=== PATIENT | female | born 1990 | race Caucasian/White ===

== ENCOUNTER 2019-06-26 22:48 | Inpatient (IN) | payer MEDICAID ==
[~2019-06-26] VITALS: Ht 167.6 cm; Wt 99.2 kg
[~2019-06-26 22:48] MED LIST: NO HOME MEDS; TRIF7.5D6 LEFTEYE; calcium chloride 100 MG/1 ML inj IV ONE; dextrose 50%-water 50ml dispensing syringe IV ONE; epiNEPHrine 0.1mg/ml 10ml syringe ONE; etomidate 2mg/ml inj. ONE; rocuronium 10mg/ml inj IV ONE
[2019-06-26] MEDS ORDERED: rocuronium 10mg/ml inj IV ONE (23:05)
[2019-06-26] MEDS ORDERED: MIDAZolam 5mg/ml 2ml vial IV ONE (23:05)
[2019-06-26] MEDS ORDERED: etomidate 2mg/ml inj. IV ONE (23:05)
[2019-06-26] MEDS: NORepinephrine 8mg/ 250ml NS 250 ML IV SCH (23:10)
[2019-06-26] MEDS: midazolam 100mg in NS 100ml 100 ML IV SCH (23:10)
[2019-06-26] MEDS ORDERED: iohexol 300mg/ml 100ml inj. ONE (23:10)
[2019-06-26 23:23] LABS: BASOPHILS # (AUTO) 0.3 X10'3 (0-0.2); BASOPHILS % (AUTO) 0.9 % (0-1); EOSINOPHILS % (AUTO) 0.1 % (0-6); HEMATOCRIT 29.9 % (35.0-45.0); HEMOGLOBIN 10.4 g/dl (12.0-16.0); LYMPHOCYTES # (AUTO) 4.2 X10'3 (1.1-4.8); MEAN CORPUSCULAR HEMOGLOBIN 38.9 PG (27.0-31.0); MEAN CORPUSCULAR HGB CONC 34.7 g/dL (33.0-36.5); MEAN CORPUSCULAR VOLUME 112.2 FL (78-98); MEAN PLATELET VOLUME 7.6 FL (7.4-10.4); MONOCYTES # (AUTO) 1.1 X10'3 (0-0.9); MONOCYTES % (AUTO) 3.9 % (2-12); NEUTROPHILS # (AUTO) 24.1 X10'3 (1.8-7.7); NEUTROPHILS % (AUTO) 81.1 % (42-75); PLATELET COUNT 157 X10'3 (140-440); RED BLOOD COUNT 2.67 X10'6 (4.20-5.60); RED CELL DISTRIBUTION WIDTH 17.4 % (11.5-14.5)
[2019-06-26 23:25] LABS: PARTIAL THROMBOPLASTIN TIME 59 SECONDS (22-32)
[2019-06-26 23:27] LABS: WHITE BLOOD COUNT 29.7 X10'3 (4.5-11.0)
[2019-06-26 23:35] LABS: ABG BASE EXCESS -14.4 mmol/L (-2.0-3.0); ABG HCO3 14.2 mmol/L (22.0-26.0); ABG OXYGEN SATURATION 92.4 % (95-98); ABG PCO2 (T) 42.9 mmHg (35.0-45.0); ABG PH (T) 7.136 (7.350-7.450); ABG PO2 (T) 87.4 mmHg (83-108); FCOHb 0.3 % (0.5-1.5); FMetHb 0.3 % (0.3-1.12); FO2Hb 91.8 % (94-100); MINUTE VOLUME 8 L/min; PATIENT TEMPERATURE 36.4; PEEP 5 cm H2O; RESPIRATORY RATE 18 b/min; RESPIRATORY RATE (OBSERVED) 18 b/min; TIDAL VOLUME 400 mL; TOTAL HEMOGLOBIN 11.8 G/dl (12.0-16.0)
[2019-06-26 23:45] LABS: ALANINE AMINOTRANSFERASE 78 U/L (12-78); ALKALINE PHOSPHATASE 350 IU/L (46-116); BILIRUBIN,TOTAL 19.4 MG/DL (0.1-1.0); BLOOD UREA NITROGEN 131 MG/DL (7-18); CALCIUM 7.1 MG/DL (8.5-10.1); ETHANOL < 0.010 GM/DL (0.0-0.010); MAGNESIUM 2.5 MG/DL (1.5-2.4); TOTAL CARBON DIOXIDE 20.4 MMOL/L (24-32)
[2019-06-26] MEDS ORDERED: piperacillin/tazo 3.375gm/50ml 50 ML IV ONE (23:55)
[2019-06-26] MEDS ORDERED: vancomycin/NS 1 GM ADD-VANTAGE 250 ML IV ONE (23:55)
[2019-06-26] MEDS ORDERED: normal saline 1000ML IV soln IV ONE (23:55)
[2019-06-26 23:58] LABS: ALBUMIN/GLOBULIN RATIO 0.2 (1.1-1.5); BUN/CREATININE RATIO 10.2 (6.6-38.0); CKMB RELATIVE INDEX 0.9 RATIO (0-2.5); CREATINE KINASE 121 U/L (26-192); CREATININE 12.87 MG/DL (0.40-0.90); GLUCOSE 57 MG/DL (70-104); PHOSPHORUS 7.8 MG/DL (2.3-4.5); POTASSIUM 4.8 MMOL/L (3.5-5.1); SODIUM 130 MMOL/L (135-145); TOTAL PROTEIN 5.5 G/DL (6.4-8.2); eGFR 3 ML/MIN
[2019-06-26 23:59] LABS: ACETAMINOPHEN < 2.0 UG/ML (10-30); ANION GAP 28 (8-16); CHLORIDE 82 MMOL/L (99-107)
[2019-06-27] VITALS (23 sets, daily range): BP systolic 87–123; BP diastolic 35–64
[2019-06-27 00:12] LABS: OSMOLALITY 315 MOSM/K (280-300)
[2019-06-27 00:13] LABS: ASPARTATE AMINO TRANSFERASE 325 U/L (10-37)
[2019-06-27] MEDS ORDERED: tranexamic acid inj. 0 MG in normal saline 100ml IV soln 100 ML IV ONE (00:40)
--- NOTE | 2019-06-27 00:55 | NUR ---
at bedside reports no real medical history. He did confirm she is a drinker and has been rectally bleeding x3days.
[2019-06-27] MEDS ORDERED: NORepinephrine 8mg/ 250ml NS 250 ML IV PRN (01:03)
[2019-06-27] MEDS ORDERED: midazolam 100mg in NS 100ml 100 ML IV PRN (01:03)
[2019-06-27] MEDS: K, MAG and/or Phos replacement - Verify level? MC SCH ×2 (01:05→08:00)
[2019-06-27] MEDS ORDERED: morphine 2 MG/ML inj. syringe IV PRN (01:05)
[2019-06-27] MEDS ORDERED: potassium Cl 20mEq/100mL bag 100 ML IV PRN ×3 (01:05→13:35)
[2019-06-27] MEDS ORDERED: tranexamic acid 100mg/ml inj. IV ONE (01:05)
[2019-06-27] MEDS ORDERED: ondansetron/PF 4mg/2ml inj IV PRN (01:05)
[2019-06-27] MEDS ORDERED: acetaminophen 325mg tablet PO PRN ×2 (01:05)
[2019-06-27] MEDS ORDERED: morphine 4 MG/ML inj SYRINge IV PRN (01:05)
[2019-06-27] MEDS ORDERED: potassium Cl 20 mEq SR tablet PO PRN ×2 (01:05)
--- NOTE | 2019-06-27 01:07 | NUR ---
Patient arrived via EMS code #3 and was intubated upon arrival. @2300 Etomidate 40mg, Mohsen 100mg and .05mg Epi were given @2310 Levo was started 20mcg. 2330 the first of 3L NS was started and mass transfusion ordered a second does of Epi 0.5mg was given. Patient arrived bleeding rectally and orally, with tried blood on her body and clothes. Patient was A&O x0. was later brought to the bedside and advised the patient is a drinker, but has no real medical history.
[2019-06-27 01:17] LABS: URINE HCG NEGATIVE (NEG)
[2019-06-27 01:22] LABS: CLARITY,URINE SLIGHTLY CLOUDY (Clear); COLOR,URINE RED (Yellow); GLUCOSE, URINE NEGATIVE (Neg); KETONES,URINE NEGATIVE (Neg); LEUKOCYTE ESTERASE ,URINE NEGATIVE (Neg); NITRITES, URINE NEGATIVE (Neg); OCCULT BLOOD,URINE LARGE (Neg); PH,URINE 5.5 (4.8-8.0); PROTEIN,URINE NEGATIVE (Neg); UROBILINOGEN,URINE 0.2 E.U/dL (0.2-1.0)
[2019-06-27 01:29] LABS: LIPASE 827 U/L (73-393)
[2019-06-27 01:30] LABS: URINE AMPHETAMINE SCREEN NEGATIVE (Neg); URINE BARBITUATE SCREEN NEGATIVE (Neg); URINE BENZODIAZEPINES SCREEN NEGATIVE (Neg); URINE CANNABINOID SCREEN NEGATIVE (Neg); URINE COCAINE SCREEN NEGATIVE (Neg); URINE METHADONE SCREEN NEGATIVE (Neg); URINE OPIATE SCREEN NEGATIVE (Neg); URINE PHENCYCLIDINE SCREEN NEGATIVE (Neg)
--- NOTE | 2019-06-27 01:38 | NUR ---
CHARLIE Bella at the [facility].
--- NOTE | 2019-06-27 01:43 | NUR ---
BLOOD TRANSFUSION ADMIN RECORD DOUBLE SIGNED BY DEYANIRA XIAO AND CORRIE XIAO, FAXED TO BLOOD BANK AND ORIGINALS PLACED ON CHART.
[2019-06-27] MEDS ORDERED: calcium chloride 100 MG/1 ML inj IV ONE (01:55)
[2019-06-27] MEDS: octreotide inj. 1,250 MCG in normal saline 250ml IV soln 243.75 ML IV SCH (02:15)
[2019-06-27] MEDS ORDERED: vasopressin inj. 20 UNIT in normal saline 100ml IV soln 39 ML IV SCH (02:20)
--- NOTE | 2019-06-27 02:26 | NUR ---
Report given to DAMEON NGUYỄN.
[2019-06-27 02:49] LABS: BASOPHILS # (AUTO) 0.1 X10'3 (0-0.2); BASOPHILS % (AUTO) 0.3 % (0-1); EOSINOPHILS % (AUTO) 0.1 % (0-6); HEMATOCRIT 32.2 % (35.0-45.0); HEMOGLOBIN 11.1 g/dl (12.0-16.0); LYMPHOCYTES # (AUTO) 1.3 X10'3 (1.1-4.8); LYMPHOCYTES % (AUTO) 3.7 % (21-51); MEAN CORPUSCULAR HGB CONC 34.7 g/dL (33.0-36.5); MEAN CORPUSCULAR VOLUME 103.7 FL (78-98); MEAN PLATELET VOLUME 7.6 FL (7.4-10.4); MONOCYTES # (AUTO) 1.7 X10'3 (0-0.9); MONOCYTES % (AUTO) 4.5 % (2-12); NEUTROPHILS # (AUTO) 33.4 X10'3 (1.8-7.7); NEUTROPHILS % (AUTO) 91.4 % (42-75); PLATELET COUNT 202 X10'3 (140-440); RED CELL DISTRIBUTION WIDTH 21.3 % (11.5-14.5)
[2019-06-27 02:53] LABS: WHITE BLOOD COUNT 36.6 X10'3 (4.5-11.0)
--- NOTE | 2019-06-27 02:57 | NUR ---
Patient to the floor
[2019-06-27 03:00] LABS: UA COLLECTION TYPE STRAIGHT CATH
[2019-06-27 03:01] LABS: BACTERIA,URINE FEW /HPF (Neg); RBC,URINE 20-50 /HPF (0-2); SQUAMOUS EPITHELIAL CELL,UR FEW /LPF (FEW); WBC,URINE 0-4 /HPF (0-4)
[2019-06-27] MEDS ORDERED: NO HOME MEDS (04:01)
[2019-06-27 05:16] LABS: OXYGEN SATURATION (MIXED VEN) 81.7 % (60-80)
--- NOTE | 2019-06-27 05:40 | NUR ---
0300 received pt via gurney from ER pt is on a ventilator, does not respond to verbal stimuli, placed on monitor, Large amount of renate blood coming from the mouth and nose, pt cleaned. Pts live in male partner at bedside states she does not have family near by and does not have a way to contact them,
[2019-06-27] MEDS: pantoprazole 40MG/NS 100ML BAG 100 ML IV SCH ×5 (05:56→20:24)
[2019-06-27 06:21] LABS: ANISOCYTOSIS 3+; PLATELET ESTIMATE NORMAL; TOTAL CELLS COUNTED 100
[2019-06-27 06:50] LABS: TOTAL CELLS COUNTED 100
[2019-06-27 06:51] LABS: ANISOCYTOSIS 1+; PLATELET ESTIMATE NORMAL
[2019-06-27 06:59] LABS: TOXIC GRANULATION 1+; TOXIC VACUOLATION FEW
[2019-06-27 08:16] LABS: HEMOGLOBIN 11.2 g/dl (12.0-16.0); MEAN CORPUSCULAR HGB CONC 34.7 g/dL (33.0-36.5)
[2019-06-27 08:19] LABS: BASOPHILS # (AUTO) 0.3 X10'3 (0-0.2); BASOPHILS % (AUTO) 0.8 % (0-1); EOSINOPHILS % (AUTO) 0 % (0-6); HEMATOCRIT 32.2 % (35.0-45.0); LYMPHOCYTES # (AUTO) 1.7 X10'3 (1.1-4.8); LYMPHOCYTES % (AUTO) 3.9 % (21-51); MEAN CORPUSCULAR HEMOGLOBIN 35.8 PG (27.0-31.0); MEAN CORPUSCULAR VOLUME 103.2 FL (78-98); MONOCYTES # (AUTO) 1.8 X10'3 (0-0.9); MONOCYTES % (AUTO) 4.2 % (2-12); NEUTROPHILS # (AUTO) 38.6 X10'3 (1.8-7.7); NEUTROPHILS % (AUTO) 91.1 % (42-75); PLATELET COUNT 245 X10'3 (140-440); RED BLOOD COUNT 3.12 X10'6 (4.20-5.60); RED CELL DISTRIBUTION WIDTH 21.2 % (11.5-14.5)
[2019-06-27 08:24] LABS: WHITE BLOOD COUNT 42.4 X10'3 (4.5-11.0)
[2019-06-27] MEDS: NORepinephrine 8mg/ 250ml NS 250 ML IV SCH ×5 (08:26→20:25)
[2019-06-27 08:33] LABS: ALANINE AMINOTRANSFERASE 82 U/L (12-78); ALBUMIN 1.3 G/DL (3.4-5.0); ALKALINE PHOSPHATASE 370 IU/L (46-116); ANION GAP 24 (8-16); BILIRUBIN,TOTAL 21.9 MG/DL (0.1-1.0); BLOOD UREA NITROGEN 120 MG/DL (7-18); CALCIUM 7.7 MG/DL (8.5-10.1); CHLORIDE 84 MMOL/L (99-107); MAGNESIUM 2.3 MG/DL (1.5-2.4); SODIUM 126 MMOL/L (135-145); TOTAL CARBON DIOXIDE 18.3 MMOL/L (24-32)
[2019-06-27 08:39] LABS: ALBUMIN/GLOBULIN RATIO 0.3 (1.1-1.5); ASPARTATE AMINO TRANSFERASE 319 U/L (10-37); BILIRUBIN,DIRECT 18.7 MG/DL (0-0.3); CREATININE 11.98 MG/DL (0.40-0.90); GLUCOSE 91 MG/DL (70-104); POTASSIUM 4.7 MMOL/L (3.5-5.1); TOTAL PROTEIN 6.1 G/DL (6.4-8.2); eGFR 4 ML/MIN
[2019-06-27] MEDS: piperacillin/tazo 3.375gm/50ml 50 ML IV SCH ×2 (08:44→20:24)
[2019-06-27] MEDS: midazolam 100mg in NS 100ml 100 ML IV SCH ×2 (08:47→18:46)
[2019-06-27] MEDS ORDERED: vancomycin/NS 1 GM ADD-VANTAGE 250 ML IV PRN (09:00)
[2019-06-27 10:20] LABS: ANISOCYTOSIS 3+; NUCLEATED RED BLOOD CELLS 2 /100WBC (0-0); PLATELET ESTIMATE NORMAL; TOTAL CELLS COUNTED 100
[2019-06-27 10:29] LABS: PHOSPHORUS 7.8 MG/DL (2.3-4.5)
[2019-06-27] MEDS: VASOPRESSIN IV SCH ×2 (11:08→17:31)
[2019-06-27] MEDS: NORMAL SALINE IV SCH ×3 (11:08→17:31)
[2019-06-27] MEDS: MVI, adult No.4 with vit. K 10 ML in dextrose 5% water 500ml 500 ML IV SCH ×2 (12:16)
[2019-06-27] MEDS: FOLIC ACID IV SCH (12:16)
[2019-06-27] MEDS: THIAMINE IV SCH (12:16)
--- NOTE | 2019-06-27 13:33 | NUR ---
Initial: Pt intubated admit w/ GIB hx etoh abuse found down in bloody stool at home per RN. Hepatorenal failure per entertainment usher at rounds in addition to bilateral PNA and jaundice per MD note. MD agrees to banana bag given etoh hx. Prognosis poor per MD and possible transfer to higher level of care if able. Pt continues to bleed w/ 300ml upper GI blood suctioned between 7am-10am per RN. LBM 06/27. Will continue to monitor. Rec: 1. monitor for nutrition support needs; IF TF Vital HP at 100ml/hr goal 2. banana bag for etoh per MD 3. weekly wts Addendum: 06/27/19 at [address] Amended: Links added.
[2019-06-27] MEDS ORDERED: calcium chloride inj. 1,000 MG in normal saline 100ml IV soln 100 ML IV PRN (13:35)
[2019-06-27] MEDS: FENTANYL-0.9 % NACL/PF 100 ML IV PRN ×2 (14:40→18:45)
[2019-06-27] MEDS: Duosol 4K/3 Ca (w/calcium) 5,000 ML HE SCH ×5 (15:22→22:10)
[2019-06-27 17:35] LABS: BASOPHILS # (AUTO) 0.3 X10'3 (0-0.2); BASOPHILS % (AUTO) 0.9 % (0-1); EOSINOPHILS % (AUTO) 0.1 % (0-6); HEMATOCRIT 31.8 % (35.0-45.0); HEMOGLOBIN 11.2 g/dl (12.0-16.0); LYMPHOCYTES % (AUTO) 7.6 % (21-51); MEAN CORPUSCULAR HEMOGLOBIN 36.1 PG (27.0-31.0); MEAN CORPUSCULAR HGB CONC 35.1 g/dL (33.0-36.5); MEAN CORPUSCULAR VOLUME 102.6 FL (78-98); MEAN PLATELET VOLUME 7.8 FL (7.4-10.4); MONOCYTES # (AUTO) 2.5 X10'3 (0-0.9); MONOCYTES % (AUTO) 6.2 % (2-12); NEUTROPHILS # (AUTO) 33.8 X10'3 (1.8-7.7); NEUTROPHILS % (AUTO) 85.2 % (42-75); PLATELET COUNT 218 X10'3 (140-440)
[2019-06-27 17:39] LABS: WHITE BLOOD COUNT 39.7 X10'3 (4.5-11.0)
[2019-06-27 17:48] LABS: ALBUMIN 1.3 G/DL (3.4-5.0); ANION GAP 19 (8-16); BLOOD UREA NITROGEN 106 MG/DL (7-18); CHLORIDE 88 MMOL/L (99-107); MAGNESIUM 2.1 MG/DL (1.5-2.4); SODIUM 126 MMOL/L (135-145); TOTAL CARBON DIOXIDE 19.3 MMOL/L (24-32)
[2019-06-27 17:49] LABS: GLUCOSE 133 MG/DL (70-104)
[2019-06-27 17:50] LABS: BUN/CREATININE RATIO 10.5 (6.6-38.0); CREATININE 10.05 MG/DL (0.40-0.90); PHOSPHORUS 5.7 MG/DL (2.3-4.5); POTASSIUM 4.6 MMOL/L (3.5-5.1); eGFR 5 ML/MIN
[2019-06-27 18:40] LABS: ANISOCYTOSIS 3+; LYMPHOCYTES % (MANUAL) 6 % (21-51); METAMYLEOCYTES% (MANUAL) 0 % (0-0); MONOCYTES % (MANUAL) 4 % (2-12); NUCLEATED RED BLOOD CELLS 1 /100WBC (0-0); PLATELET ESTIMATE NORMAL; TOTAL CELLS COUNTED 200
[2019-06-27 18:41] LABS: POLYCHROMASIA 1+
[2019-06-27 18:42] LABS: ROULEAUX 1+; TARGET CELLS FEW
--- NOTE | 2019-06-27 18:45 | NUR ---
I have received report and assumed care of pt. pt resting in bed rise and fall of chest cavity equile and symmetrical. CVVH in place md ordrers followed, all vasoactive medication via CVL. MD orders followed for titration of medications. Pt does not open eyes to verbal command,
--- NOTE | 2019-06-27 19:00 | NUR ---
family at bedside questions answered,
[2019-06-27] MEDS: lactobacillus rhamnosus 10,000 MMU CELLS/CAPSULE PO SCH (20:24)
--- NOTE | 2019-06-27 21:05 | NUR ---
unable to turn pt to the right side as the CVVH alarms pt will be turned from back to left to maintain skin integrity.
[2019-06-27 23:02] LABS: EOSINOPHILS % (AUTO) 0.1 % (0-6); HEMOGLOBIN 11.7 g/dl (12.0-16.0)
[2019-06-27 23:03] LABS: BASOPHILS # (AUTO) 0.3 X10'3 (0-0.2); BASOPHILS % (AUTO) 0.8 % (0-1); HEMATOCRIT 32.8 % (35.0-45.0); LYMPHOCYTES # (AUTO) 1.9 X10'3 (1.1-4.8); LYMPHOCYTES % (AUTO) 5.2 % (21-51); MEAN CORPUSCULAR HEMOGLOBIN 36.3 PG (27.0-31.0); MEAN CORPUSCULAR HGB CONC 35.6 g/dL (33.0-36.5); MEAN CORPUSCULAR VOLUME 101.9 FL (78-98); MEAN PLATELET VOLUME 7.7 FL (7.4-10.4); MONOCYTES % (AUTO) 5.2 % (2-12); NEUTROPHILS # (AUTO) 33.4 X10'3 (1.8-7.7); NEUTROPHILS % (AUTO) 88.7 % (42-75); PLATELET COUNT 213 X10'3 (140-440); RED BLOOD COUNT 3.22 X10'6 (4.20-5.60); RED CELL DISTRIBUTION WIDTH 21.7 % (11.5-14.5)
[2019-06-27 23:12] LABS: ANION GAP 14 (8-16); BLOOD UREA NITROGEN 79 MG/DL (7-18); BUN/CREATININE RATIO 11.1 (6.6-38.0); CHLORIDE 96 MMOL/L (99-107); SODIUM 132 MMOL/L (135-145); TOTAL CARBON DIOXIDE 22.5 MMOL/L (24-32)
[2019-06-27 23:13] LABS: ALBUMIN 1.4 G/DL (3.4-5.0); GLUCOSE 110 MG/DL (70-104); PHOSPHORUS 4.4 MG/DL (2.3-4.5); POTASSIUM 4.4 MMOL/L (3.5-5.1); eGFR 7 ML/MIN
[2019-06-27 23:15] LABS: WHITE BLOOD COUNT 37.6 X10'3 (4.5-11.0)
[2019-06-28] VITALS (24 sets, daily range): BP systolic 96–113; BP diastolic 49–64
[2019-06-28] MEDS: NORepinephrine 8mg/ 250ml NS 250 ML IV SCH ×7 (00:06→22:58)
[2019-06-28] MEDS: Duosol 4K/3 Ca (w/calcium) 5,000 ML HE SCH ×14 (00:11→23:00)
[2019-06-28] MEDS: pantoprazole 40MG/NS 100ML BAG 100 ML IV SCH ×5 (01:13→20:59)
[2019-06-28] MEDS: NORMAL SALINE IV SCH ×4 (02:15→20:07)
[2019-06-28] MEDS: VASOPRESSIN IV SCH ×3 (02:15→20:07)
[2019-06-28] MEDS: mineral oil/petrolatum ophthal oint EACHEYE SCH ×4 (02:16→20:15)
[2019-06-28 03:26] LABS: ABG BASE EXCESS -0.4 mmol/L (-2.0-3.0); ABG HCO3 22.6 mmol/L (22.0-26.0); ABG OXYGEN SATURATION 93.5 % (95-98); ABG PH (T) 7.479 (7.350-7.450); ABG PO2 (T) 67.4 mmHg (83-108); FMetHb 0.2 % (0.3-1.12); FO2Hb 93.3 % (94-100); MINUTE VOLUME 9 L/min; PATIENT TEMPERATURE 36.1; PEEP 10 cm H2O; RESPIRATORY RATE 18 b/min; RESPIRATORY RATE (OBSERVED) 21 b/min; TIDAL VOLUME 400 mL; TOTAL HEMOGLOBIN 12.3 G/dl (12.0-16.0)
[2019-06-28 05:46] LABS: BASOPHILS # (AUTO) 0.1 X10'3 (0-0.2); BASOPHILS % (AUTO) 0.2 % (0-1); EOSINOPHILS % (AUTO) 0.1 % (0-6); HEMATOCRIT 32.2 % (35.0-45.0); HEMOGLOBIN 11.3 g/dl (12.0-16.0); LYMPHOCYTES # (AUTO) 1.4 X10'3 (1.1-4.8); LYMPHOCYTES % (AUTO) 4.2 % (21-51); MEAN CORPUSCULAR HEMOGLOBIN 36.1 PG (27.0-31.0); MEAN CORPUSCULAR HGB CONC 35.2 g/dL (33.0-36.5); MEAN CORPUSCULAR VOLUME 102.8 FL (78-98); MEAN PLATELET VOLUME 7.9 FL (7.4-10.4); NEUTROPHILS # (AUTO) 29.8 X10'3 (1.8-7.7); NEUTROPHILS % (AUTO) 89.5 % (42-75); PLATELET COUNT 188 X10'3 (140-440); RED BLOOD COUNT 3.13 X10'6 (4.20-5.60); RED CELL DISTRIBUTION WIDTH 22.4 % (11.5-14.5)
[2019-06-28 05:49] LABS: ALANINE AMINOTRANSFERASE 98 U/L (12-78); ALBUMIN 1.3 G/DL (3.4-5.0); ALKALINE PHOSPHATASE 368 IU/L (46-116); ANION GAP 12 (8-16); BILIRUBIN,TOTAL 21.1 MG/DL (0.1-1.0); BLOOD UREA NITROGEN 53 MG/DL (7-18); BUN/CREATININE RATIO 10.8 (6.6-38.0); CALCIUM 8.1 MG/DL (8.5-10.1); CHLORIDE 99 MMOL/L (99-107); CREATININE 4.93 MG/DL (0.40-0.90); MAGNESIUM 1.8 MG/DL (1.5-2.4); SODIUM 135 MMOL/L (135-145); TOTAL CARBON DIOXIDE 24.5 MMOL/L (24-32); VANCOMYCIN,RANDOM 8.6 UG/ML; eGFR 10 ML/MIN
[2019-06-28 05:50] LABS: PARTIAL THROMBOPLASTIN TIME 56 SECONDS (22-32)
[2019-06-28 05:53] LABS: ALBUMIN/GLOBULIN RATIO 0.3 (1.1-1.5); ASPARTATE AMINO TRANSFERASE 434 U/L (10-37); GLUCOSE 93 MG/DL (70-104); PHOSPHORUS 3.5 MG/DL (2.3-4.5); POTASSIUM 4.3 MMOL/L (3.5-5.1); TOTAL PROTEIN 6.2 G/DL (6.4-8.2)
[2019-06-28 06:03] LABS: WHITE BLOOD COUNT 33.3 X10'3 (4.5-11.0)
[2019-06-28 06:44] LABS: ANISOCYTOSIS 3+; NUCLEATED RED BLOOD CELLS 1 /100WBC (0-0); PLATELET ESTIMATE NORMAL; TARGET CELLS 1+; TOTAL CELLS COUNTED 100
[2019-06-28 06:45] LABS: POLYCHROMASIA FEW; TOXIC GRANULATION 1+
[2019-06-28] MEDS: VANCOMYCIN LEVEL IV SCH (06:47)
[2019-06-28] MEDS: piperacillin/tazo 3.375gm/50ml 50 ML IV SCH ×2 (07:54→20:09)
[2019-06-28] MEDS: MVI, adult No.4 with vit. K 10 ML in dextrose 5% water 500ml 500 ML IV SCH ×2 (07:54)
[2019-06-28] MEDS: FOLIC ACID IV SCH (07:55)
[2019-06-28] MEDS: THIAMINE IV SCH (07:55)
[2019-06-28] MEDS ORDERED: NORepinephrine 1 mg/ml inj IV ONE (08:00)
[2019-06-28] MEDS: K, MAG and/or Phos replacement - Verify level? MC SCH (08:00)
[2019-06-28] MEDS: lactobacillus rhamnosus 10,000 MMU CELLS/CAPSULE PO SCH ×2 (08:00→20:09)
--- NOTE | 2019-06-28 10:57 | NUR ---
Pt brother visiting in room.
[2019-06-28 11:25] LABS: BASOPHILS # (AUTO) 0.2 X10'3 (0-0.2); BASOPHILS % (AUTO) 0.6 % (0-1); EOSINOPHILS # (AUTO) 0.1 X10'3 (0-0.9); EOSINOPHILS % (AUTO) 0.2 % (0-6); HEMATOCRIT 32.3 % (35.0-45.0); HEMOGLOBIN 11.2 g/dl (12.0-16.0); LYMPHOCYTES # (AUTO) 1.8 X10'3 (1.1-4.8); LYMPHOCYTES % (AUTO) 5.4 % (21-51); MEAN CORPUSCULAR HEMOGLOBIN 35.4 PG (27.0-31.0); MEAN CORPUSCULAR HGB CONC 34.6 g/dL (33.0-36.5); MEAN CORPUSCULAR VOLUME 102.2 FL (78-98); MEAN PLATELET VOLUME 7.7 FL (7.4-10.4); MONOCYTES # (AUTO) 1.9 X10'3 (0-0.9); MONOCYTES % (AUTO) 5.7 % (2-12); NEUTROPHILS # (AUTO) 29.6 X10'3 (1.8-7.7); NEUTROPHILS % (AUTO) 88.1 % (42-75); PLATELET COUNT 176 X10'3 (140-440); RED BLOOD COUNT 3.16 X10'6 (4.20-5.60); RED CELL DISTRIBUTION WIDTH 22.4 % (11.5-14.5)
[2019-06-28 11:30] LABS: WHITE BLOOD COUNT 33.6 X10'3 (4.5-11.0)
[2019-06-28 11:39] LABS: ALBUMIN 1.2 G/DL (3.4-5.0); ANION GAP 9 (8-16); BLOOD UREA NITROGEN 38 MG/DL (7-18); BUN/CREATININE RATIO 10.8 (6.6-38.0); CHLORIDE 100 MMOL/L (99-107); CREATININE 3.53 MG/DL (0.40-0.90); GLUCOSE 118 MG/DL (70-104); MAGNESIUM 1.8 MG/DL (1.5-2.4); PHOSPHORUS 2.7 MG/DL (2.3-4.5); POTASSIUM 4.3 MMOL/L (3.5-5.1); SODIUM 134 MMOL/L (135-145); TOTAL CARBON DIOXIDE 25.1 MMOL/L (24-32); eGFR 15 ML/MIN
--- NOTE | 2019-06-28 12:37 | NUR ---
Pablo 12: General +2 pitting edema and skin intact. Addendum: 06/28/19 at [address] Amended: Links added.
[2019-06-28 17:11] LABS: ABG HCO3 24.7 mmol/L (22.0-26.0); ABG OXYGEN SATURATION 92.6 % (95-98); ABG PCO2 (T) 32.5 mmHg (35.0-45.0); ABG PH (T) 7.499 (7.350-7.450); ABG PO2 (T) 64.6 mmHg (83-108); FCOHb 0.2 % (0.5-1.5); FMetHb 0.2 % (0.3-1.12); FO2Hb 92.2 % (94-100); MINUTE VOLUME 8 L/min; PEEP 10 cm H2O; RESPIRATORY RATE 18 b/min; RESPIRATORY RATE (OBSERVED) 18 b/min; TIDAL VOLUME 400 mL; TOTAL HEMOGLOBIN 12.6 G/dl (12.0-16.0)
[2019-06-28 17:46] LABS: BASOPHILS # (AUTO) 0.2 X10'3 (0-0.2); BASOPHILS % (AUTO) 0.6 % (0-1); EOSINOPHILS # (AUTO) 0.3 X10'3 (0-0.9); EOSINOPHILS % (AUTO) 0.9 % (0-6); HEMATOCRIT 32.9 % (35.0-45.0); HEMOGLOBIN 11.4 g/dl (12.0-16.0); LYMPHOCYTES % (AUTO) 5.9 % (21-51); MEAN CORPUSCULAR HEMOGLOBIN 35.8 PG (27.0-31.0); MEAN CORPUSCULAR HGB CONC 34.6 g/dL (33.0-36.5); MEAN CORPUSCULAR VOLUME 103.4 FL (78-98); MEAN PLATELET VOLUME 7.6 FL (7.4-10.4); MONOCYTES # (AUTO) 2.2 X10'3 (0-0.9); MONOCYTES % (AUTO) 6.5 % (2-12); NEUTROPHILS # (AUTO) 29.6 X10'3 (1.8-7.7); NEUTROPHILS % (AUTO) 86.1 % (42-75); PLATELET COUNT 148 X10'3 (140-440); RED BLOOD COUNT 3.18 X10'6 (4.20-5.60); RED CELL DISTRIBUTION WIDTH 22.3 % (11.5-14.5)
[2019-06-28 17:54] LABS: ALBUMIN 1.1 G/DL (3.4-5.0); ANION GAP 8 (8-16); BLOOD UREA NITROGEN 25 MG/DL (7-18); CHLORIDE 99 MMOL/L (99-107); MAGNESIUM 1.7 MG/DL (1.5-2.4); SODIUM 133 MMOL/L (135-145); TOTAL CARBON DIOXIDE 26.1 MMOL/L (24-32)
[2019-06-28 17:56] LABS: BUN/CREATININE RATIO 9.5 (6.6-38.0); CREATININE 2.62 MG/DL (0.40-0.90); GLUCOSE 104 MG/DL (70-104); PHOSPHORUS 2.2 MG/DL (2.3-4.5); POTASSIUM 4.1 MMOL/L (3.5-5.1); eGFR 21 ML/MIN
[2019-06-28 17:59] LABS: WHITE BLOOD COUNT 34.4 X10'3 (4.5-11.0)
--- NOTE | 2019-06-28 18:43 | NUR ---
Patient in room ICU 2040. I have received report and had the opportunity to ask questions and assume patient care.
[2019-06-28] MEDS: midazolam 100mg in NS 100ml 100 ML IV SCH (23:10)
[2019-06-29] VITALS (24 sets, daily range): BP systolic 90–117; BP diastolic 44–66
[2019-06-29 00:33] LABS: EOSINOPHILS # (AUTO) 0.1 X10'3 (0-0.9); HEMOGLOBIN 11.3 g/dl (12.0-16.0); MONOCYTES # (AUTO) 1.8 X10'3 (0-0.9)
[2019-06-29 00:35] LABS: BASOPHILS # (AUTO) 0.1 X10'3 (0-0.2); BASOPHILS % (AUTO) 0.4 % (0-1); EOSINOPHILS % (AUTO) 0.2 % (0-6); HEMATOCRIT 32.3 % (35.0-45.0); LYMPHOCYTES # (AUTO) 1.9 X10'3 (1.1-4.8); LYMPHOCYTES % (AUTO) 5.8 % (21-51); MEAN CORPUSCULAR HEMOGLOBIN 35.9 PG (27.0-31.0); MEAN CORPUSCULAR HGB CONC 34.9 g/dL (33.0-36.5); MEAN CORPUSCULAR VOLUME 102.9 FL (78-98); MEAN PLATELET VOLUME 8.4 FL (7.4-10.4); MONOCYTES % (AUTO) 5.7 % (2-12); NEUTROPHILS # (AUTO) 28.2 X10'3 (1.8-7.7); NEUTROPHILS % (AUTO) 87.9 % (42-75); PLATELET COUNT 140 X10'3 (140-440); RED BLOOD COUNT 3.14 X10'6 (4.20-5.60); RED CELL DISTRIBUTION WIDTH 22.6 % (11.5-14.5)
[2019-06-29 00:39] LABS: ALBUMIN 1.2 G/DL (3.4-5.0); ANION GAP 6 (8-16); BLOOD UREA NITROGEN 20 MG/DL (7-18); BUN/CREATININE RATIO 9.9 (6.6-38.0); CHLORIDE 103 MMOL/L (99-107); CREATININE 2.02 MG/DL (0.40-0.90); MAGNESIUM 1.7 MG/DL (1.5-2.4); SODIUM 137 MMOL/L (135-145); TOTAL CARBON DIOXIDE 27.6 MMOL/L (24-32); WHITE BLOOD COUNT 32.1 X10'3 (4.5-11.0); eGFR 29 ML/MIN
--- NOTE | 2019-06-29 00:41 | NUR ---
central line and arterial li Addendum: 06/29/19 at 0042 by Leyla Torres RN line dressing changed
[2019-06-29 00:43] LABS: GLUCOSE 99 MG/DL (70-104); POTASSIUM 4.2 MMOL/L (3.5-5.1)
[2019-06-29 01:00] LABS: NUCLEATED RED BLOOD CELLS 2 /100WBC (0-0); TOTAL CELLS COUNTED 100
[2019-06-29 01:02] LABS: ANISOCYTOSIS 3+; PLATELET ESTIMATE NORMAL; POLYCHROMASIA FEW; TARGET CELLS FEW
[2019-06-29] MEDS: octreotide inj. 1,250 MCG in normal saline 250ml IV soln 243.75 ML IV SCH (02:00)
[2019-06-29] MEDS: pantoprazole 40MG/NS 100ML BAG 100 ML IV SCH ×5 (02:00→21:44)
[2019-06-29] MEDS: NORepinephrine 8mg/ 250ml NS 250 ML IV SCH ×4 (02:01→18:52)
[2019-06-29] MEDS: mineral oil/petrolatum ophthal oint EACHEYE SCH ×4 (02:02→20:46)
[2019-06-29] MEDS: VANCOMYCIN LEVEL IV SCH (03:00)
[2019-06-29 04:20] LABS: ABG BASE EXCESS 3.1 mmol/L (-2.0-3.0); ABG OXYGEN SATURATION 91.2 % (95-98); ABG PCO2 (T) 33.1 mmHg (35.0-45.0); ABG PO2 (T) 57.7 mmHg (83-108); FCOHb 0.3 % (0.5-1.5); FMetHb 0.2 % (0.3-1.12); FO2Hb 90.7 % (94-100); MINUTE VOLUME 8 L/min; PATIENT TEMPERATURE 36.2; PEEP 10 cm H2O; RESPIRATORY RATE 18 b/min; RESPIRATORY RATE (OBSERVED) 18 b/min; TIDAL VOLUME 400 mL; TOTAL HEMOGLOBIN 12.4 G/dl (12.0-16.0)
[2019-06-29] MEDS: Duosol 4K/3 Ca (w/calcium) 5,000 ML HE SCH ×15 (05:38→22:15)
[2019-06-29 05:41] LABS: ALANINE AMINOTRANSFERASE 104 U/L (12-78); ALBUMIN 1.2 G/DL (3.4-5.0); ALBUMIN/GLOBULIN RATIO 0.2 (1.1-1.5); ALKALINE PHOSPHATASE 356 IU/L (46-116); ANION GAP 9 (8-16); ASPARTATE AMINO TRANSFERASE 441 U/L (10-37); BILIRUBIN,TOTAL 19.9 MG/DL (0.1-1.0); BLOOD UREA NITROGEN 17 MG/DL (7-18); BUN/CREATININE RATIO 10.9 (6.6-38.0); CALCIUM 8.9 MG/DL (8.5-10.1); CHLORIDE 103 MMOL/L (99-107); CREATININE 1.56 MG/DL (0.40-0.90); GLUCOSE 88 MG/DL (70-104); MAGNESIUM 1.7 MG/DL (1.5-2.4); PHOSPHORUS 2.9 MG/DL (2.3-4.5); POTASSIUM 4.3 MMOL/L (3.5-5.1); SODIUM 138 MMOL/L (135-145); TOTAL CARBON DIOXIDE 25.8 MMOL/L (24-32); TOTAL PROTEIN 6.1 G/DL (6.4-8.2); VANCOMYCIN,RANDOM 14.3 UG/ML; eGFR 39 ML/MIN
[2019-06-29 05:52] LABS: BASOPHILS # (AUTO) 0.2 X10'3 (0-0.2); BASOPHILS % (AUTO) 0.7 % (0-1); EOSINOPHILS # (AUTO) 0.1 X10'3 (0-0.9); EOSINOPHILS % (AUTO) 0.3 % (0-6); HEMATOCRIT 32.4 % (35.0-45.0); HEMOGLOBIN 11.2 g/dl (12.0-16.0); LYMPHOCYTES # (AUTO) 1.8 X10'3 (1.1-4.8); LYMPHOCYTES % (AUTO) 5.9 % (21-51); MEAN CORPUSCULAR HEMOGLOBIN 35.8 PG (27.0-31.0); MEAN CORPUSCULAR HGB CONC 34.5 g/dL (33.0-36.5); MEAN PLATELET VOLUME 7.8 FL (7.4-10.4); MONOCYTES # (AUTO) 1.9 X10'3 (0-0.9); MONOCYTES % (AUTO) 6.1 % (2-12); NEUTROPHILS # (AUTO) 26.8 X10'3 (1.8-7.7); PLATELET COUNT 121 X10'3 (140-440); RED BLOOD COUNT 3.12 X10'6 (4.20-5.60); RED CELL DISTRIBUTION WIDTH 22.7 % (11.5-14.5)
[2019-06-29 05:59] LABS: WHITE BLOOD COUNT 30.7 X10'3 (4.5-11.0)
--- NOTE | 2019-06-29 06:30 | NUR ---
Patient in room ICU 2040. I have received report from Leyla XIAO and had the opportunity to ask questions and assume patient care.
[2019-06-29 06:47] LABS: PLATELET ESTIMATE DECREASED; TOTAL CELLS COUNTED 100
[2019-06-29 06:48] LABS: ANISOCYTOSIS 3+; TOXIC GRANULATION 1+
[2019-06-29] MEDS: NORMAL SALINE IV SCH ×3 (06:55→18:35)
[2019-06-29] MEDS: MVI, adult No.4 with vit. K 10 ML in dextrose 5% water 500ml 500 ML IV SCH ×2 (06:55)
[2019-06-29] MEDS: THIAMINE IV SCH (06:55)
[2019-06-29] MEDS: FOLIC ACID IV SCH (06:55)
[2019-06-29] MEDS: lactobacillus rhamnosus 10,000 MMU CELLS/CAPSULE PO SCH ×2 (06:55→20:46)
[2019-06-29] MEDS: K, MAG and/or Phos replacement - Verify level? MC SCH (07:35)
[2019-06-29] MEDS: VASOPRESSIN IV SCH ×2 (07:47→18:35)
[2019-06-29] MEDS: piperacillin/tazo 3.375gm/50ml 50 ML IV SCH ×2 (07:50→15:20)
[2019-06-29] MEDS: rifaximin 550mg tablet PO SCH ×2 (09:40→20:46)
--- NOTE | 2019-06-29 10:15 | NUR ---
CVVH taken down for cartridge change
[2019-06-29 11:09] LABS: BASOPHILS # (AUTO) 0.1 X10'3 (0-0.2); HEMOGLOBIN 10.6 g/dl (12.0-16.0); LYMPHOCYTES # (AUTO) 1.9 X10'3 (1.1-4.8); MEAN CORPUSCULAR HEMOGLOBIN 35.8 PG (27.0-31.0); MONOCYTES # (AUTO) 2.1 X10'3 (0-0.9); NEUTROPHILS # (AUTO) 23.9 X10'3 (1.8-7.7); RED BLOOD COUNT 2.97 X10'6 (4.20-5.60)
[2019-06-29 11:11] LABS: BASOPHILS % (AUTO) 0.3 % (0-1); EOSINOPHILS # (AUTO) 0.3 X10'3 (0-0.9); EOSINOPHILS % (AUTO) 1.1 % (0-6); HEMATOCRIT 30.7 % (35.0-45.0); LYMPHOCYTES % (AUTO) 6.9 % (21-51); MEAN CORPUSCULAR HGB CONC 34.6 g/dL (33.0-36.5); MEAN CORPUSCULAR VOLUME 103.4 FL (78-98); MEAN PLATELET VOLUME 7.8 FL (7.4-10.4); MONOCYTES % (AUTO) 7.3 % (2-12); NEUTROPHILS % (AUTO) 84.4 % (42-75); PLATELET COUNT 106 X10'3 (140-440); RED CELL DISTRIBUTION WIDTH 22.4 % (11.5-14.5)
[2019-06-29 11:13] LABS: WHITE BLOOD COUNT 28.3 X10'3 (4.5-11.0)
[2019-06-29 11:21] LABS: ANION GAP 8 (8-16); BLOOD UREA NITROGEN 13 MG/DL (7-18); BUN/CREATININE RATIO 8.7 (6.6-38.0); CHLORIDE 103 MMOL/L (99-107); GLUCOSE 105 MG/DL (70-104); MAGNESIUM 1.5 MG/DL (1.5-2.4); PHOSPHORUS 2.9 MG/DL (2.3-4.5); POTASSIUM 3.9 MMOL/L (3.5-5.1); SODIUM 135 MMOL/L (135-145); TOTAL CARBON DIOXIDE 23.7 MMOL/L (24-32); eGFR 41 ML/MIN
[2019-06-29] MEDS: midazolam 100mg in NS 100ml 100 ML IV SCH (11:25)
[2019-06-29 11:41] LABS: ANISOCYTOSIS 3+; PLATELET ESTIMATE DECREASED
--- NOTE | 2019-06-29 11:56 | NUR ---
TF consult: TF to start today per MD. Pt is intubated. On CVVH. MD requests Nepro at 30ml/hr (~1296kcal, 58g protein; meeting 49% of est. nutrition need, 28% of est. protein need). RD suggests Vital High Protein at goal rate of 100ml/hr (~2400kcal. 210g protein; meeting 91% est. nutrition need, 100% est. protein need). Unable to meet pt's protein needs using Nepro given high calorie density; TF recs below. Adjust per MD approval. LBM 06/28. Continue to monitor for TF tolerance. Rec: 1. OGTF per MD using Nepro at goal rate 30ml/hr; to provide 720ml fluid, 1296kcal, 58g protein and 526ml free water 2. Additional water flush per MD on CVVH 3. Prealbumin q /; daily wts 4. Routine bowel care Addendum: 06/29/19 at [address] Amended: Links added. Addendum: 06/29/19 at [address] RD Approves
[2019-06-29] MEDS: methylPREDNISolone sod succ/PF 40mg inj. IV SCH ×2 (13:24→20:46)
[2019-06-29] MEDS: lactulose 20gm/30ml cup PO SCH ×2 (13:24→20:46)
[2019-06-29] MEDS: midodrine tablet 2.5 MG TABLET PO SCH (15:19)
[2019-06-29 17:04] LABS: BASOPHILS # (AUTO) 0.2 X10'3 (0-0.2); BASOPHILS % (AUTO) 0.6 % (0-1); EOSINOPHILS # (AUTO) 0.3 X10'3 (0-0.9); EOSINOPHILS % (AUTO) 0.9 % (0-6); HEMATOCRIT 32.9 % (35.0-45.0); HEMOGLOBIN 11.3 g/dl (12.0-16.0); LYMPHOCYTES # (AUTO) 1.6 X10'3 (1.1-4.8); LYMPHOCYTES % (AUTO) 5.8 % (21-51); MEAN CORPUSCULAR HEMOGLOBIN 36.1 PG (27.0-31.0); MEAN CORPUSCULAR HGB CONC 34.4 g/dL (33.0-36.5); MEAN CORPUSCULAR VOLUME 104.9 FL (78-98); MONOCYTES # (AUTO) 1.8 X10'3 (0-0.9); MONOCYTES % (AUTO) 6.2 % (2-12); NEUTROPHILS # (AUTO) 24.6 X10'3 (1.8-7.7); NEUTROPHILS % (AUTO) 86.5 % (42-75); PLATELET COUNT 102 X10'3 (140-440); RED BLOOD COUNT 3.13 X10'6 (4.20-5.60); RED CELL DISTRIBUTION WIDTH 21.9 % (11.5-14.5)
[2019-06-29 17:08] LABS: WHITE BLOOD COUNT 28.4 X10'3 (4.5-11.0)
[2019-06-29 17:15] LABS: ALBUMIN 1.1 G/DL (3.4-5.0); ANION GAP 7 (8-16); BLOOD UREA NITROGEN 13 MG/DL (7-18); CHLORIDE 102 MMOL/L (99-107); MAGNESIUM 1.6 MG/DL (1.5-2.4); SODIUM 135 MMOL/L (135-145); TOTAL CARBON DIOXIDE 26.4 MMOL/L (24-32)
[2019-06-29 17:16] LABS: GLUCOSE 114 MG/DL (70-104); PHOSPHORUS 2.3 MG/DL (2.3-4.5); POTASSIUM 4.1 MMOL/L (3.5-5.1); eGFR 48 ML/MIN
[2019-06-29 18:05] LABS: ANISOCYTOSIS 3+; NUCLEATED RED BLOOD CELLS 1 /100WBC (0-0); PLATELET ESTIMATE DECREASED; TOTAL CELLS COUNTED 100; TOXIC GRANULATION 2+
[2019-06-29 18:06] LABS: TARGET CELLS 1+
--- NOTE | 2019-06-29 18:30 | NUR ---
Patient in room ICU 2040. I have received report from Jamia XIAO and had the opportunity to ask questions and assume patient care.
[2019-06-29 18:33] LABS: POLYCHROMASIA FEW
--- NOTE | 2019-06-29 23:00 | NUR ---
When turned to the left and right, CVVH machine constantly will alarm, trouble shot the machine and switching the ports without success. Machine will not run when patient is turned to either side. Currently shifting hips and placing pillows to offload pressure. Will continue to monitor patient.
[2019-06-29 23:15] LABS: BASOPHILS # (AUTO) 0.2 X10'3 (0-0.2); BASOPHILS % (AUTO) 0.7 % (0-1); EOSINOPHILS # (AUTO) 0.3 X10'3 (0-0.9); HEMATOCRIT 33.1 % (35.0-45.0); HEMOGLOBIN 11.4 g/dl (12.0-16.0); LYMPHOCYTES % (AUTO) 6.7 % (21-51); MEAN CORPUSCULAR HEMOGLOBIN 36.2 PG (27.0-31.0); MEAN CORPUSCULAR HGB CONC 34.3 g/dL (33.0-36.5); MEAN CORPUSCULAR VOLUME 105.3 FL (78-98); MONOCYTES # (AUTO) 1.3 X10'3 (0-0.9); MONOCYTES % (AUTO) 4.4 % (2-12); NEUTROPHILS # (AUTO) 25.5 X10'3 (1.8-7.7); NEUTROPHILS % (AUTO) 87.2 % (42-75); PLATELET COUNT 93 X10'3 (140-440); RED BLOOD COUNT 3.14 X10'6 (4.20-5.60); RED CELL DISTRIBUTION WIDTH 22.7 % (11.5-14.5)
[2019-06-29 23:26] LABS: ALBUMIN 1.1 G/DL (3.4-5.0); ANION GAP 7 (8-16); BLOOD UREA NITROGEN 12 MG/DL (7-18); CHLORIDE 102 MMOL/L (99-107); MAGNESIUM 1.6 MG/DL (1.5-2.4); SODIUM 136 MMOL/L (135-145); TOTAL CARBON DIOXIDE 26.9 MMOL/L (24-32)
[2019-06-29 23:46] LABS: WHITE BLOOD COUNT 29.3 X10'3 (4.5-11.0)
[2019-06-29 23:47] LABS: BUN/CREATININE RATIO 10.3 (6.6-38.0); CREATININE 1.17 MG/DL (0.40-0.90); GLUCOSE 121 MG/DL (70-104); PHOSPHORUS 2.2 MG/DL (2.3-4.5); POTASSIUM 4.2 MMOL/L (3.5-5.1); eGFR 54 ML/MIN
[2019-06-30] VITALS (24 sets, daily range): BP systolic 95–116; BP diastolic 53–63
[2019-06-30] MEDS: piperacillin/tazo 3.375gm/50ml 50 ML IV SCH ×4 (00:10→23:50)
[2019-06-30] MEDS: midodrine tablet 2.5 MG TABLET PO SCH ×4 (00:10→23:51)
[2019-06-30] MEDS: pantoprazole 40MG/NS 100ML BAG 100 ML IV SCH ×5 (01:00→20:02)
[2019-06-30] MEDS: NORepinephrine 8mg/ 250ml NS 250 ML IV SCH ×4 (01:26→23:15)
[2019-06-30] MEDS: mineral oil/petrolatum ophthal oint EACHEYE SCH ×4 (02:21→20:02)
[2019-06-30] MEDS: lactulose 20gm/30ml cup PO SCH ×4 (02:21→20:02)
[2019-06-30] MEDS: methylPREDNISolone sod succ/PF 40mg inj. IV SCH ×4 (02:21→20:02)
[2019-06-30] MEDS: midazolam 100mg in NS 100ml 100 ML IV SCH ×2 (02:25→20:32)
[2019-06-30] MEDS: VASOPRESSIN IV SCH (02:48)
[2019-06-30] MEDS: NORMAL SALINE IV SCH ×2 (02:48→07:31)
[2019-06-30] MEDS: VANCOMYCIN LEVEL IV SCH (03:00)
[2019-06-30] MEDS: Duosol 4K/3 Ca (w/calcium) 5,000 ML HE SCH ×11 (03:28→20:26)
[2019-06-30 04:00] LABS: ABG BASE EXCESS 1.4 mmol/L (-2.0-3.0); ABG HCO3 24.6 mmol/L (22.0-26.0); ABG PCO2 (T) 32.3 mmHg (35.0-45.0); ABG PH (T) 7.495 (7.350-7.450); ABG PO2 (T) 52.8 mmHg (83-108); FCOHb 0.3 % (0.5-1.5); FMetHb 0.1 % (0.3-1.12); FO2Hb 88.6 % (94-100); MINUTE VOLUME 8 L/min; PATIENT TEMPERATURE 35.9; PEEP 10 cm H2O; RESPIRATORY RATE 14 b/min; RESPIRATORY RATE (OBSERVED) 18 b/min; TIDAL VOLUME 400 mL; TOTAL HEMOGLOBIN 12.1 G/dl (12.0-16.0)
[2019-06-30] MEDS: FENTANYL-0.9 % NACL/PF 100 ML IV PRN (05:12)
[2019-06-30 05:20] LABS: ALANINE AMINOTRANSFERASE 109 U/L (12-78); ALBUMIN 1.1 G/DL (3.4-5.0); ALKALINE PHOSPHATASE 360 IU/L (46-116); BILIRUBIN,TOTAL 19.4 MG/DL (0.1-1.0); BLOOD UREA NITROGEN 12 MG/DL (7-18); CALCIUM 8.7 MG/DL (8.5-10.1); CHLORIDE 102 MMOL/L (99-107); PARTIAL THROMBOPLASTIN TIME 51 SECONDS (22-32); TOTAL CARBON DIOXIDE 25.7 MMOL/L (24-32)
[2019-06-30 05:21] LABS: MAGNESIUM 1.6 MG/DL (1.5-2.4); PREALBUMIN 7.6 MG/DL (19-36); VANCOMYCIN,RANDOM 14.4 UG/ML
[2019-06-30 05:26] LABS: BASOPHILS % (AUTO) 0.1 % (0-1); EOSINOPHILS # (AUTO) 0.3 X10'3 (0-0.9); EOSINOPHILS % (AUTO) 0.9 % (0-6); HEMATOCRIT 32.5 % (35.0-45.0); HEMOGLOBIN 11.3 g/dl (12.0-16.0); LYMPHOCYTES % (AUTO) 6.4 % (21-51); MEAN CORPUSCULAR HEMOGLOBIN 36.4 PG (27.0-31.0); MEAN CORPUSCULAR HGB CONC 34.8 g/dL (33.0-36.5); MEAN CORPUSCULAR VOLUME 104.8 FL (78-98); MEAN PLATELET VOLUME 8.2 FL (7.4-10.4); MONOCYTES # (AUTO) 1.8 X10'3 (0-0.9); MONOCYTES % (AUTO) 5.9 % (2-12); NEUTROPHILS # (AUTO) 27.2 X10'3 (1.8-7.7); NEUTROPHILS % (AUTO) 86.7 % (42-75); PLATELET COUNT 89 X10'3 (140-440); RED CELL DISTRIBUTION WIDTH 22.5 % (11.5-14.5)
[2019-06-30 05:35] LABS: ALBUMIN/GLOBULIN RATIO 0.2 (1.1-1.5); ANION GAP 11 (8-16); BUN/CREATININE RATIO 10.8 (6.6-38.0); CREATININE 1.11 MG/DL (0.40-0.90); GLUCOSE 131 MG/DL (70-104); POTASSIUM 4.1 MMOL/L (3.5-5.1); SODIUM 139 MMOL/L (135-145); TOTAL PROTEIN 6.2 G/DL (6.4-8.2); eGFR 57 ML/MIN
[2019-06-30 05:38] LABS: ASPARTATE AMINO TRANSFERASE 460 U/L (10-37); WHITE BLOOD COUNT 31.4 X10'3 (4.5-11.0)
[2019-06-30 05:44] LABS: LACTIC SEPSIS 1.3 MMOL/L (0.4-2.0)
--- NOTE | 2019-06-30 05:48 | NUR ---
Critical WBC called to Sachin Aaron NP. Will continue to monitor.
--- NOTE | 2019-06-30 06:31 | NUR ---
Problems reprioritized. Patient report given, questions answered & plan of care reviewed with Priyank XIAO.
[2019-06-30 06:32] LABS: ANISOCYTOSIS 3+; NUCLEATED RED BLOOD CELLS 2 /100WBC (0-0); PLATELET ESTIMATE DECREASED; TOTAL CELLS COUNTED 100
[2019-06-30 06:33] LABS: TOXIC GRANULATION 1+; TOXIC VACUOLATION 1+
[2019-06-30 06:34] LABS: POLYCHROMASIA 1+
[2019-06-30] MEDS: THIAMINE IV SCH (07:31)
[2019-06-30] MEDS: FOLIC ACID IV SCH (07:31)
[2019-06-30] MEDS: K, MAG and/or Phos replacement - Verify level? MC SCH (08:00)
[2019-06-30] MEDS: magnesium 4gm in 100ml NS 100 ML IV PRN (08:19)
[2019-06-30] MEDS: MVI, adult No.4 with vit. K 10 ML in dextrose 5% water 500ml 500 ML IV SCH ×2 (08:20)
[2019-06-30] MEDS: sodium phosphate inj. 30 MMOL in normal saline 250ml IV soln 250 ML IV PRN (08:27)
[2019-06-30] MEDS: rifaximin 550mg tablet PO SCH ×2 (08:34→20:02)
[2019-06-30] MEDS: lactobacillus rhamnosus 10,000 MMU CELLS/CAPSULE PO SCH ×2 (08:34→20:02)
[2019-06-30] MEDS: albumin (human) 25% 100 ML IV solution IV SCH ×3 (09:16→20:01)
[2019-06-30 11:45] LABS: EOSINOPHILS # (AUTO) 0.1 X10'3 (0-0.9); HEMOGLOBIN 10.6 g/dl (12.0-16.0); MEAN CORPUSCULAR VOLUME 104.7 FL (78-98); MONOCYTES % (AUTO) 5.3 % (2-12)
[2019-06-30 11:47] LABS: BASOPHILS # (AUTO) 0.2 X10'3 (0-0.2); BASOPHILS % (AUTO) 0.6 % (0-1); EOSINOPHILS % (AUTO) 0.3 % (0-6); HEMATOCRIT 30.7 % (35.0-45.0); LYMPHOCYTES # (AUTO) 1.8 X10'3 (1.1-4.8); LYMPHOCYTES % (AUTO) 5.6 % (21-51); MEAN CORPUSCULAR HEMOGLOBIN 36.1 PG (27.0-31.0); MEAN CORPUSCULAR HGB CONC 34.5 g/dL (33.0-36.5); MEAN PLATELET VOLUME 8.2 FL (7.4-10.4); MONOCYTES # (AUTO) 1.7 X10'3 (0-0.9); NEUTROPHILS # (AUTO) 28.9 X10'3 (1.8-7.7); NEUTROPHILS % (AUTO) 88.2 % (42-75); PLATELET COUNT 84 X10'3 (140-440); RED BLOOD COUNT 2.93 X10'6 (4.20-5.60); RED CELL DISTRIBUTION WIDTH 22.3 % (11.5-14.5)
--- NOTE | 2019-06-30 11:51 | NUR ---
TF consult: ok'd to advance/change TF to Vital High Protein at goal rate 90ml/hr (~2160kcal, 189gPro; meeting 100% of est. nutrition need, 100% of est. protein need). Initiate 30ml/hr and advance by 20ml q8 hours to goal. Low residual amount. No free water given due to CVVH; monitor fluid. LBM 06/28. Will monitor for TF tolerance. TF consult: TF to start today per MD. Pt is intubated. On CVVH. MD requests Nepro at 30ml/hr (~1296kcal, 58g protein; meeting 49% of est. nutrition need, 28% of est. protein need). RD suggests Vital High Protein at goal rate of 100ml/hr (~2400kcal. 210g protein; meeting 91% est. nutrition need, 100% est. protein need). Unable to meet pt's protein needs using Nepro given high calorie density; TF recs below. Adjust per MD approval. LBM 06/28. Continue to monitor for TF tolerance. Rec: 1. OGTF per MD using Vital High Protein at goal rate 90ml/hr; to provide 2160ml fluid,2160kcal, 189g protein and 1814ml free water 2. Additional water flush per MD on CVVH 3. Prealbumin q /; daily wts 4. Routine bowel care Addendum: 06/30/19 at [address] Amended: Links added. Addendum: 06/30/19 at [address] RYAN Doll
[2019-06-30 11:54] LABS: WHITE BLOOD COUNT 32.8 X10'3 (4.5-11.0)
--- NOTE | 2019-06-30 12:00 | NUR ---
Patient started on Vital HP at 30ml/h; advance as tolerated.
--- NOTE | 2019-06-30 12:00 | NUR ---
Critical WBC 32.8; MD aware; no new orders at this time.
[2019-06-30 12:12] LABS: ALBUMIN 1.7 G/DL (3.4-5.0); ANION GAP 10 (8-16); BLOOD UREA NITROGEN 12 MG/DL (7-18); BUN/CREATININE RATIO 12.8 (6.6-38.0); CHLORIDE 102 MMOL/L (99-107); CREATININE 0.94 MG/DL (0.40-0.90); MAGNESIUM 2.8 MG/DL (1.5-2.4); SODIUM 138 MMOL/L (135-145); TOTAL CARBON DIOXIDE 26.3 MMOL/L (24-32); eGFR 69 ML/MIN
[2019-06-30 12:15] LABS: GLUCOSE 188 MG/DL (70-104); PHOSPHORUS 2.8 MG/DL (2.3-4.5); POTASSIUM 4.1 MMOL/L (3.5-5.1)
[2019-06-30] MEDS: MULTIVIT-MIN/FERROUS GLUCONATE 9 MG/15 ML LIQUID PO SCH (14:30)
[2019-06-30 17:12] LABS: BASOPHILS # (AUTO) 0.1 X10'3 (0-0.2); MEAN PLATELET VOLUME 8.2 FL (7.4-10.4)
[2019-06-30 17:14] LABS: BASOPHILS % (AUTO) 0.2 % (0-1); EOSINOPHILS # (AUTO) 0.1 X10'3 (0-0.9); EOSINOPHILS % (AUTO) 0.2 % (0-6); HEMATOCRIT 29.5 % (35.0-45.0); HEMOGLOBIN 10.2 g/dl (12.0-16.0); LYMPHOCYTES # (AUTO) 2.1 X10'3 (1.1-4.8); LYMPHOCYTES % (AUTO) 6.1 % (21-51); MEAN CORPUSCULAR HEMOGLOBIN 36.1 PG (27.0-31.0); MEAN CORPUSCULAR HGB CONC 34.7 g/dL (33.0-36.5); MEAN CORPUSCULAR VOLUME 103.9 FL (78-98); MONOCYTES # (AUTO) 1.9 X10'3 (0-0.9); MONOCYTES % (AUTO) 5.5 % (2-12); NEUTROPHILS # (AUTO) 29.9 X10'3 (1.8-7.7); PLATELET COUNT 82 X10'3 (140-440); RED BLOOD COUNT 2.83 X10'6 (4.20-5.60); RED CELL DISTRIBUTION WIDTH 22.7 % (11.5-14.5)
[2019-06-30 17:15] LABS: ALBUMIN 2.1 G/DL (3.4-5.0); ANION GAP 9 (8-16); BLOOD UREA NITROGEN 12 MG/DL (7-18); BUN/CREATININE RATIO 12.9 (6.6-38.0); CHLORIDE 103 MMOL/L (99-107); CREATININE 0.93 MG/DL (0.40-0.90); MAGNESIUM 2.5 MG/DL (1.5-2.4); SODIUM 140 MMOL/L (135-145); eGFR 70 ML/MIN
[2019-06-30 17:16] LABS: GLUCOSE 165 MG/DL (70-104); PHOSPHORUS 2.7 MG/DL (2.3-4.5); POTASSIUM 3.9 MMOL/L (3.5-5.1)
--- NOTE | 2019-06-30 17:28 | NUR ---
Critical WBC 34.0; Dr. Avitia notified; no new orders at this time.
--- NOTE | 2019-06-30 18:26 | NUR ---
Problems reprioritized. Patient report given, questions answered & plan of care reviewed with Larissa XIAO.
--- NOTE | 2019-06-30 18:30 | NUR ---
Patient in room ICU 2040. I have received report from Priyank XIAO and had the opportunity to ask questions and assume patient care.
--- NOTE | 2019-06-30 19:30 | NUR ---
Mother and boyfriend at bedside arguing with S/O. Asked family members to leave and discuss matters outside of the unit.
[2019-06-30] MEDS: octreotide inj. 1,250 MCG in normal saline 250ml IV soln 243.75 ML IV SCH (23:50)
[2019-07-01] VITALS (24 sets, daily range): BP systolic 91–126; BP diastolic 49–88
[2019-07-01 00:11] LABS: BASOPHILS # (AUTO) 0.1 X10'3 (0-0.2); BASOPHILS % (AUTO) 0.3 % (0-1); EOSINOPHILS % (AUTO) 0 % (0-6); HEMATOCRIT 29.2 % (35.0-45.0); HEMOGLOBIN 10.3 g/dl (12.0-16.0); LYMPHOCYTES # (AUTO) 1.7 X10'3 (1.1-4.8); MEAN CORPUSCULAR HEMOGLOBIN 36.5 PG (27.0-31.0); MEAN CORPUSCULAR HGB CONC 35.3 g/dL (33.0-36.5); MEAN CORPUSCULAR VOLUME 103.2 FL (78-98); MEAN PLATELET VOLUME 8.2 FL (7.4-10.4); MONOCYTES # (AUTO) 1.6 X10'3 (0-0.9); MONOCYTES % (AUTO) 4.6 % (2-12); NEUTROPHILS # (AUTO) 31.5 X10'3 (1.8-7.7); NEUTROPHILS % (AUTO) 90.1 % (42-75); PLATELET COUNT 78 X10'3 (140-440); RED BLOOD COUNT 2.83 X10'6 (4.20-5.60)
[2019-07-01 00:13] LABS: ALBUMIN 2.5 G/DL (3.4-5.0); ANION GAP 7 (8-16); CHLORIDE 102 MMOL/L (99-107); SODIUM 136 MMOL/L (135-145); TOTAL CARBON DIOXIDE 27.1 MMOL/L (24-32)
[2019-07-01 00:14] LABS: BLOOD UREA NITROGEN 12 MG/DL (7-18); BUN/CREATININE RATIO 13.5 (6.6-38.0); CREATININE 0.89 MG/DL (0.40-0.90); GLUCOSE 158 MG/DL (70-104); PHOSPHORUS 2.1 MG/DL (2.3-4.5); POTASSIUM 4.2 MMOL/L (3.5-5.1); eGFR 74 ML/MIN
[2019-07-01 00:56] LABS: ANISOCYTOSIS 3+; NUCLEATED RED BLOOD CELLS 1 /100WBC (0-0); PLATELET ESTIMATE DECREASED; TARGET CELLS 1+; TOTAL CELLS COUNTED 100
[2019-07-01 00:57] LABS: LYMPHOCYTES % (MANUAL) 7 % (21-51); MONOCYTES % (MANUAL) 5 % (2-12)
--- NOTE | 2019-07-01 01:00 | NUR ---
Wound noted on Right Groin to the right of dialysis cath. Critical WBC of 35.0 Notified September. New orders received to culture wound. Culture sent to lab, Pictures taken and placed into chart. Will continue to monitor.
[2019-07-01] MEDS: mineral oil/petrolatum ophthal oint EACHEYE SCH ×4 (01:29→19:36)
[2019-07-01] MEDS: pantoprazole 40MG/NS 100ML BAG 100 ML IV SCH ×5 (01:29→19:37)
[2019-07-01] MEDS: lactulose 20gm/30ml cup PO SCH ×2 (01:29→07:30)
[2019-07-01] MEDS: methylPREDNISolone sod succ/PF 40mg inj. IV SCH ×4 (01:30→19:37)
[2019-07-01] MEDS: albumin (human) 25% 100 ML IV solution IV SCH ×4 (01:42→20:11)
[2019-07-01] MEDS: Duosol 4K/3 Ca (w/calcium) 5,000 ML HE SCH ×15 (02:00→23:38)
[2019-07-01] MEDS: VANCOMYCIN LEVEL IV SCH (03:00)
[2019-07-01 03:40] LABS: ABG BASE EXCESS 2.8 mmol/L (-2.0-3.0); ABG HCO3 26.9 mmol/L (22.0-26.0); ABG OXYGEN SATURATION 96.2 % (95-98); ABG PCO2 (T) 37.8 mmHg (35.0-45.0); ABG PH (T) 7.466 (7.350-7.450); ABG PO2 (T) 80.6 mmHg (83-108); FCOHb 0.3 % (0.5-1.5); FMetHb 0.1 % (0.3-1.12); FO2Hb 95.8 % (94-100); MINUTE VOLUME 6 L/min; PEEP 12 cm H2O; RESPIRATORY RATE 14 b/min; RESPIRATORY RATE (OBSERVED) 15 b/min; TIDAL VOLUME 400 mL; TOTAL HEMOGLOBIN 10.6 G/dl (12.0-16.0)
[2019-07-01] MEDS: FENTANYL-0.9 % NACL/PF 100 ML IV PRN (05:08)
[2019-07-01 05:52] LABS: EOSINOPHILS % (AUTO) 0.1 % (0-6); HEMOGLOBIN 9.8 g/dl (12.0-16.0)
[2019-07-01 05:55] LABS: BASOPHILS # (AUTO) 0.2 X10'3 (0-0.2); BASOPHILS % (AUTO) 0.5 % (0-1); HEMATOCRIT 27.7 % (35.0-45.0); LYMPHOCYTES # (AUTO) 1.6 X10'3 (1.1-4.8); LYMPHOCYTES % (AUTO) 5.1 % (21-51); MEAN CORPUSCULAR HEMOGLOBIN 36.6 PG (27.0-31.0); MEAN CORPUSCULAR HGB CONC 35.5 g/dL (33.0-36.5); MEAN CORPUSCULAR VOLUME 103.2 FL (78-98); MEAN PLATELET VOLUME 8.2 FL (7.4-10.4); MONOCYTES # (AUTO) 1.5 X10'3 (0-0.9); MONOCYTES % (AUTO) 4.7 % (2-12); NEUTROPHILS # (AUTO) 28.6 X10'3 (1.8-7.7); NEUTROPHILS % (AUTO) 89.6 % (42-75); PLATELET COUNT 61 X10'3 (140-440); RED BLOOD COUNT 2.69 X10'6 (4.20-5.60)
[2019-07-01 06:09] LABS: ALANINE AMINOTRANSFERASE 99 U/L (12-78); ALBUMIN 2.7 G/DL (3.4-5.0); ALKALINE PHOSPHATASE 309 IU/L (46-116); ANION GAP 11 (8-16); BLOOD UREA NITROGEN 12 MG/DL (7-18); BUN/CREATININE RATIO 14.6 (6.6-38.0); CALCIUM 9.5 MG/DL (8.5-10.1); CHLORIDE 103 MMOL/L (99-107); CREATININE 0.82 MG/DL (0.40-0.90); SODIUM 141 MMOL/L (135-145); TOTAL CARBON DIOXIDE 26.7 MMOL/L (24-32); VANCOMYCIN,RANDOM 14.4 UG/ML; eGFR 81 ML/MIN
[2019-07-01 06:17] LABS: LACTIC SEPSIS 0.9 MMOL/L (0.4-2.0)
--- NOTE | 2019-07-01 06:30 | NUR ---
Patient in room ICU 2040. I have received report from Larissa XIAO and had the opportunity to ask questions and assume patient care.
--- NOTE | 2019-07-01 06:31 | NUR ---
Problems reprioritized. Patient report given, questions answered & plan of care reviewed with Jamia XIAO.
[2019-07-01 06:40] LABS: ALBUMIN/GLOBULIN RATIO 0.7 (1.1-1.5); ASPARTATE AMINO TRANSFERASE 337 U/L (10-37); BILIRUBIN,TOTAL 26.9 MG/DL (0.1-1.0); GLUCOSE 143 MG/DL (70-104); PHOSPHORUS 2.1 MG/DL (2.3-4.5); POTASSIUM 4.3 MMOL/L (3.5-5.1); TOTAL PROTEIN 6.7 G/DL (6.4-8.2)
[2019-07-01 07:16] LABS: ANISOCYTOSIS 3+; PLATELET ESTIMATE DECREASED; POLYCHROMASIA FEW; TARGET CELLS 1+; TOTAL CELLS COUNTED 100
[2019-07-01] MEDS: MULTIVIT-MIN/FERROUS GLUCONATE 9 MG/15 ML LIQUID PO SCH (07:29)
[2019-07-01] MEDS: rifaximin 550mg tablet PO SCH (07:29)
[2019-07-01] MEDS: FOLIC ACID IV SCH (07:30)
[2019-07-01] MEDS: lactobacillus rhamnosus 10,000 MMU CELLS/CAPSULE PO SCH (07:30)
[2019-07-01] MEDS: piperacillin/tazo 3.375gm/50ml 50 ML IV SCH ×2 (07:30→15:34)
[2019-07-01] MEDS: NORMAL SALINE IV SCH ×2 (07:30→12:12)
[2019-07-01] MEDS: THIAMINE IV SCH (07:30)
[2019-07-01] MEDS: NORepinephrine 8mg/ 250ml NS 250 ML IV SCH (07:35)
--- NOTE | 2019-07-01 07:48 | NUR ---
TF Residual 450; 300 given back, will recheck in one hour
[2019-07-01] MEDS: K, MAG and/or Phos replacement - Verify level? MC SCH (08:00)
[2019-07-01] MEDS: midodrine tablet 2.5 MG TABLET PO SCH (08:00)
[2019-07-01] MEDS ORDERED: midodrine 5mg tablet PO SCH (08:30)
[2019-07-01] MEDS: sodium phosphate inj. 30 MMOL in normal saline 250ml IV soln 250 ML IV PRN (09:08)
[2019-07-01] MEDS: methylnaltrexone br 12mg/0.6ml inj***SubQ only SQ SCH (09:19)
[2019-07-01] MEDS ORDERED: acetaminophen 325mg tablet OGT PRN ×2 (10:58)
[2019-07-01] MEDS ORDERED: potassium Cl 20 mEq SR tablet OGT PRN ×2 (11:00)
[2019-07-01 11:11] LABS: ABG BASE EXCESS 0.7 mmol/L (-2.0-3.0); ABG OXYGEN SATURATION 97.8 % (95-98); ABG PCO2 (T) 38.5 mmHg (35.0-45.0); ABG PO2 (T) 105.2 mmHg (83-108); FCOHb 0.9 % (0.5-1.5); FLOW 30 L/min; FMetHb 0.3 % (0.3-1.12); FO2Hb 96.6 % (94-100); PEEP 8 cm H2O; RESPIRATORY RATE 12 b/min; TIDAL VOLUME 400 mL
[2019-07-01 11:36] LABS: BASOPHILS % (AUTO) 0.1 % (0-1); EOSINOPHILS % (AUTO) 0 % (0-6); HEMATOCRIT 25.7 % (35.0-45.0); LYMPHOCYTES # (AUTO) 1.2 X10'3 (1.1-4.8); LYMPHOCYTES % (AUTO) 4.3 % (21-51); MEAN CORPUSCULAR HEMOGLOBIN 36.3 PG (27.0-31.0); MEAN CORPUSCULAR HGB CONC 34.9 g/dL (33.0-36.5); MEAN CORPUSCULAR VOLUME 103.8 FL (78-98); MEAN PLATELET VOLUME 7.6 FL (7.4-10.4); MONOCYTES # (AUTO) 1.6 X10'3 (0-0.9); MONOCYTES % (AUTO) 5.5 % (2-12); NEUTROPHILS # (AUTO) 25.9 X10'3 (1.8-7.7); NEUTROPHILS % (AUTO) 90.1 % (42-75); RED BLOOD COUNT 2.47 X10'6 (4.20-5.60); RED CELL DISTRIBUTION WIDTH 22.5 % (11.5-14.5)
[2019-07-01 11:40] LABS: WHITE BLOOD COUNT 28.7 X10'3 (4.5-11.0)
[2019-07-01 11:41] LABS: PLATELET COUNT 46 X10'3 (140-440)
[2019-07-01 11:50] LABS: ALBUMIN 2.9 G/DL (3.4-5.0); ANION GAP 13 (8-16); BLOOD UREA NITROGEN 12 MG/DL (7-18); CHLORIDE 104 MMOL/L (99-107); MAGNESIUM 1.9 MG/DL (1.5-2.4); SODIUM 143 MMOL/L (135-145); TOTAL CARBON DIOXIDE 25.8 MMOL/L (24-32); eGFR 84 ML/MIN
--- NOTE | 2019-07-01 11:55 | NUR ---
Reassessment: TF continues at 30 mL/hr and has not been advanced to goal d/t residuals in the higher range of 350-450 mL. D/w MD recommendation for promotility agent or opioid antagonist. Per MD promotility such as Reglan not appropriate for pt at this time however pt to start on Relistor. ARMANDO stable on CRRT per MD notes. LB 06/30 documented with 5 stools, pt receiving Lactulose. Will continue to follow closely. Rec: 1. OGTF per MD using Vital High Protein at goal rate 90ml/hr; to provide 2160ml fluid,2160kcal, 189g protein and 1814ml free water 2. Additional water flush per MD on CVVH 3. Prealbumin q /; daily wts 4. Routine bowel care Addendum: 07/01/19 at [address] Amended: Links added.
[2019-07-01 11:58] LABS: GLUCOSE 149 MG/DL (70-104); POTASSIUM 4.3 MMOL/L (3.5-5.1)
[2019-07-01] MEDS: VASOPRESSIN IV SCH (12:12)
[2019-07-01] MEDS: lactulose 20gm/30ml cup OGT SCH ×2 (13:14→19:36)
[2019-07-01] MEDS: midazolam 100mg in NS 100ml 100 ML IV SCH (13:14)
[2019-07-01] MEDS: midodrine 5mg tablet OGT SCH (15:34)
[2019-07-01 17:28] LABS: BASOPHILS # (AUTO) 0.1 X10'3 (0-0.2); BASOPHILS % (AUTO) 0.3 % (0-1); EOSINOPHILS % (AUTO) 0 % (0-6); HEMATOCRIT 25.3 % (35.0-45.0); LYMPHOCYTES % (AUTO) 3.6 % (21-51); MEAN CORPUSCULAR HGB CONC 35.4 g/dL (33.0-36.5); MEAN CORPUSCULAR VOLUME 104.5 FL (78-98); MEAN PLATELET VOLUME 8.2 FL (7.4-10.4); MONOCYTES # (AUTO) 1.4 X10'3 (0-0.9); MONOCYTES % (AUTO) 5.1 % (2-12); NEUTROPHILS # (AUTO) 25.6 X10'3 (1.8-7.7); RED BLOOD COUNT 2.42 X10'6 (4.20-5.60); RED CELL DISTRIBUTION WIDTH 22.3 % (11.5-14.5)
[2019-07-01 17:31] LABS: WHITE BLOOD COUNT 28.1 X10'3 (4.5-11.0)
[2019-07-01 17:32] LABS: PLATELET COUNT 40 X10'3 (140-440)
[2019-07-01 17:41] LABS: ANION GAP 10 (8-16); BLOOD UREA NITROGEN 13 MG/DL (7-18); BUN/CREATININE RATIO 15.7 (6.6-38.0); CHLORIDE 104 MMOL/L (99-107); CREATININE 0.83 MG/DL (0.40-0.90); MAGNESIUM 1.9 MG/DL (1.5-2.4); SODIUM 141 MMOL/L (135-145); eGFR 80 ML/MIN
[2019-07-01 17:47] LABS: GLUCOSE 168 MG/DL (70-104); POTASSIUM 4.2 MMOL/L (3.5-5.1)
--- NOTE | 2019-07-01 18:18 | NUR ---
Problems reprioritized. Patient report given, questions answered & plan of care reviewed with Eloina XIAO.
--- NOTE | 2019-07-01 18:30 | NUR ---
Patient in room ICU 2040. I have received report from DAMEON Blandon and had the opportunity to ask questions and assume patient care.
[2019-07-01] MEDS: lactobacillus rhamnosus 10,000 MMU CELLS/CAPSULE OGT SCH (19:36)
[2019-07-01] MEDS: rifaximin 550mg tablet OGT SCH (19:36)
[2019-07-01 23:31] LABS: BASOPHILS # (AUTO) 0.1 X10'3 (0-0.2); BASOPHILS % (AUTO) 0.4 % (0-1); EOSINOPHILS % (AUTO) 0 % (0-6); HEMATOCRIT 25.5 % (35.0-45.0); HEMOGLOBIN 8.9 g/dl (12.0-16.0); LYMPHOCYTES # (AUTO) 0.9 X10'3 (1.1-4.8); LYMPHOCYTES % (AUTO) 3.2 % (21-51); MEAN CORPUSCULAR HEMOGLOBIN 36.7 PG (27.0-31.0); MEAN CORPUSCULAR VOLUME 104.8 FL (78-98); MEAN PLATELET VOLUME 8.1 FL (7.4-10.4); MONOCYTES # (AUTO) 1.2 X10'3 (0-0.9); MONOCYTES % (AUTO) 4.4 % (2-12); NEUTROPHILS # (AUTO) 25.6 X10'3 (1.8-7.7); RED BLOOD COUNT 2.43 X10'6 (4.20-5.60); RED CELL DISTRIBUTION WIDTH 21.9 % (11.5-14.5)
[2019-07-01 23:36] LABS: PLATELET COUNT 34 X10'3 (140-440); WHITE BLOOD COUNT 27.9 X10'3 (4.5-11.0)
[2019-07-01 23:46] LABS: ALBUMIN 3.2 G/DL (3.4-5.0); BLOOD UREA NITROGEN 13 MG/DL (7-18); CHLORIDE 102 MMOL/L (99-107); MAGNESIUM 1.8 MG/DL (1.5-2.4); TOTAL CARBON DIOXIDE 27.8 MMOL/L (24-32)
[2019-07-02] VITALS (24 sets, daily range): BP systolic 94–116; BP diastolic 47–64
[2019-07-02 00:01] LABS: ANION GAP 10 (8-16); BUN/CREATININE RATIO 16.7 (6.6-38.0); CREATININE 0.78 MG/DL (0.40-0.90); GLUCOSE 143 MG/DL (70-104); PHOSPHORUS 2.4 MG/DL (2.3-4.5); POTASSIUM 3.8 MMOL/L (3.5-5.1); SODIUM 140 MMOL/L (135-145); eGFR 86 ML/MIN
[2019-07-02] MEDS: piperacillin/tazo 3.375gm/50ml 50 ML IV SCH ×3 (00:06→15:08)
[2019-07-02] MEDS: midodrine 5mg tablet OGT SCH ×3 (00:06→15:08)
[2019-07-02] MEDS: Duosol 4K/3 Ca (w/calcium) 5,000 ML HE SCH ×17 (01:16→23:47)
[2019-07-02] MEDS: pantoprazole 40MG/NS 100ML BAG 100 ML IV SCH ×5 (01:16→19:23)
[2019-07-02] MEDS: albumin (human) 25% 100 ML IV solution IV SCH ×4 (02:02→19:24)
[2019-07-02] MEDS: lactulose 20gm/30ml cup OGT SCH ×4 (02:02→19:23)
[2019-07-02] MEDS: mineral oil/petrolatum ophthal oint EACHEYE SCH ×4 (02:02→19:23)
[2019-07-02] MEDS: methylPREDNISolone sod succ/PF 40mg inj. IV SCH ×4 (02:02→19:23)
[2019-07-02 03:00] LABS: ABG BASE EXCESS 0.4 mmol/L (-2.0-3.0); ABG HCO3 24.6 mmol/L (22.0-26.0); ABG OXYGEN SATURATION 92.2 % (95-98); ABG PCO2 (T) 36.8 mmHg (35.0-45.0); FCOHb 0.9 % (0.5-1.5); FMetHb 0.2 % (0.3-1.12); FO2Hb 91.2 % (94-100); MINUTE VOLUME 6 L/min; PATIENT TEMPERATURE 36.6; PEEP 8 cm H2O; RESPIRATORY RATE 12 b/min; RESPIRATORY RATE (OBSERVED) 15 b/min; TIDAL VOLUME 400 mL; TOTAL HEMOGLOBIN 9.1 G/dl (12.0-16.0)
[2019-07-02 05:42] LABS: BASOPHILS % (AUTO) 0.1 % (0-1); EOSINOPHILS % (AUTO) 0 % (0-6); HEMATOCRIT 23.8 % (35.0-45.0); HEMOGLOBIN 8.3 g/dl (12.0-16.0); LYMPHOCYTES # (AUTO) 0.9 X10'3 (1.1-4.8); LYMPHOCYTES % (AUTO) 3.5 % (21-51); MEAN CORPUSCULAR HEMOGLOBIN 36.7 PG (27.0-31.0); MEAN CORPUSCULAR HGB CONC 34.8 g/dL (33.0-36.5); MEAN CORPUSCULAR VOLUME 105.7 FL (78-98); MEAN PLATELET VOLUME 8.4 FL (7.4-10.4); MONOCYTES # (AUTO) 1.1 X10'3 (0-0.9); MONOCYTES % (AUTO) 4.4 % (2-12); RED BLOOD COUNT 2.25 X10'6 (4.20-5.60); RED CELL DISTRIBUTION WIDTH 22.3 % (11.5-14.5)
[2019-07-02 05:46] LABS: PLATELET COUNT 33 X10'3 (140-440); WHITE BLOOD COUNT 26.1 X10'3 (4.5-11.0)
[2019-07-02] MEDS: midazolam 100mg in NS 100ml 100 ML IV SCH (05:47)
[2019-07-02 05:59] LABS: PARTIAL THROMBOPLASTIN TIME 56 SECONDS (22-32)
[2019-07-02 06:14] LABS: ANION GAP 10 (8-16); BLOOD UREA NITROGEN 14 MG/DL (7-18); CALCIUM 9.9 MG/DL (8.5-10.1); CHLORIDE 102 MMOL/L (99-107); MAGNESIUM 1.8 MG/DL (1.5-2.4); SODIUM 138 MMOL/L (135-145); TOTAL CARBON DIOXIDE 26.5 MMOL/L (24-32)
[2019-07-02 06:15] LABS: ALANINE AMINOTRANSFERASE 96 U/L (12-78); ALBUMIN 3.3 G/DL (3.4-5.0); ALKALINE PHOSPHATASE 235 IU/L (46-116)
--- NOTE | 2019-07-02 06:17 | NUR ---
Patient in room ICU 2040. I have received report from Eloina XIAO and had the opportunity to ask questions and assume patient care.
--- NOTE | 2019-07-02 06:20 | NUR ---
Problems reprioritized. Patient report given, questions answered & plan of care reviewed with DAMEON Blandon.
[2019-07-02 06:55] LABS: LACTIC SEPSIS 1.9 MMOL/L (0.4-2.0)
[2019-07-02 06:59] LABS: TOTAL CELLS COUNTED 100
[2019-07-02 07:00] LABS: ANISOCYTOSIS 3+; HYPOCHROMASIA 1+; PLATELET ESTIMATE DECREASED; STOMATOCYTES 1+
[2019-07-02 07:02] LABS: POLYCHROMASIA FEW
[2019-07-02 07:06] LABS: ASPARTATE AMINO TRANSFERASE 274 U/L (10-37)
[2019-07-02] MEDS: THIAMINE IV SCH (07:41)
[2019-07-02] MEDS: FOLIC ACID IV SCH (07:41)
[2019-07-02] MEDS: NORMAL SALINE IV SCH ×2 (07:41→23:47)
[2019-07-02] MEDS: rifaximin 550mg tablet OGT SCH ×2 (07:43→19:24)
[2019-07-02] MEDS: lactobacillus rhamnosus 10,000 MMU CELLS/CAPSULE OGT SCH ×2 (07:43→19:24)
[2019-07-02] MEDS: MULTIVIT-MIN/FERROUS GLUCONATE 9 MG/15 ML LIQUID OGT SCH (07:44)
[2019-07-02 07:58] LABS: BILIRUBIN,TOTAL 26.3 MG/DL (0.1-1.0); BUN/CREATININE RATIO 18.2 (6.6-38.0); CREATININE 0.77 MG/DL (0.40-0.90); GLUCOSE 149 MG/DL (70-104); PHOSPHORUS 2.3 MG/DL (2.3-4.5); POTASSIUM 4.1 MMOL/L (3.5-5.1); eGFR 87 ML/MIN
[2019-07-02 07:59] LABS: TOTAL PROTEIN 6.6 G/DL (6.4-8.2)
[2019-07-02] MEDS: K, MAG and/or Phos replacement - Verify level? MC SCH (08:00)
[2019-07-02 11:35] LABS: BASOPHILS # (AUTO) 0.1 X10'3 (0-0.2); BASOPHILS % (AUTO) 0.3 % (0-1); EOSINOPHILS % (AUTO) 0 % (0-6); HEMATOCRIT 23.7 % (35.0-45.0); HEMOGLOBIN 8.2 g/dl (12.0-16.0); MEAN CORPUSCULAR HEMOGLOBIN 36.9 PG (27.0-31.0); MEAN CORPUSCULAR HGB CONC 34.8 g/dL (33.0-36.5); MEAN PLATELET VOLUME 7.8 FL (7.4-10.4); MONOCYTES # (AUTO) 1.1 X10'3 (0-0.9); MONOCYTES % (AUTO) 4.2 % (2-12); NEUTROPHILS # (AUTO) 23.4 X10'3 (1.8-7.7); NEUTROPHILS % (AUTO) 91.5 % (42-75); RED BLOOD COUNT 2.24 X10'6 (4.20-5.60); RED CELL DISTRIBUTION WIDTH 22.5 % (11.5-14.5)
[2019-07-02 11:42] LABS: WHITE BLOOD COUNT 25.5 X10'3 (4.5-11.0)
[2019-07-02 11:43] LABS: ANION GAP 12 (8-16); BLOOD UREA NITROGEN 14 MG/DL (7-18); BUN/CREATININE RATIO 17.9 (6.6-38.0); CHLORIDE 103 MMOL/L (99-107); CREATININE 0.78 MG/DL (0.40-0.90); GLUCOSE 164 MG/DL (70-104); PLATELET COUNT 27 X10'3 (140-440); POTASSIUM 4.2 MMOL/L (3.5-5.1); SODIUM 141 MMOL/L (135-145); TOTAL CARBON DIOXIDE 26.4 MMOL/L (24-32); eGFR 86 ML/MIN
[2019-07-02 11:44] LABS: ALBUMIN 3.5 G/DL (3.4-5.0); MAGNESIUM 1.9 MG/DL (1.5-2.4); PHOSPHORUS 2.1 MG/DL (2.3-4.5)
[2019-07-02] MEDS: ipratropium/albuterol 3ml nebule NEB PRN (15:07)
[2019-07-02] MEDS: sodium phosphate inj. 30 MMOL in normal saline 250ml IV soln 250 ML IV PRN (15:08)
[2019-07-02 17:35] LABS: EOSINOPHILS % (AUTO) 0 % (0-6); HEMOGLOBIN 8.4 g/dl (12.0-16.0)
[2019-07-02 17:36] LABS: BASOPHILS % (AUTO) 0 % (0-1); HEMATOCRIT 23.8 % (35.0-45.0); LYMPHOCYTES % (AUTO) 3.8 % (21-51); MEAN CORPUSCULAR HEMOGLOBIN 37.1 PG (27.0-31.0); MEAN CORPUSCULAR HGB CONC 35.2 g/dL (33.0-36.5); MEAN CORPUSCULAR VOLUME 105.4 FL (78-98); MEAN PLATELET VOLUME 8.4 FL (7.4-10.4); MONOCYTES # (AUTO) 1.1 X10'3 (0-0.9); MONOCYTES % (AUTO) 4.1 % (2-12); NEUTROPHILS # (AUTO) 23.4 X10'3 (1.8-7.7); NEUTROPHILS % (AUTO) 92.1 % (42-75); RED BLOOD COUNT 2.26 X10'6 (4.20-5.60); RED CELL DISTRIBUTION WIDTH 22.1 % (11.5-14.5)
[2019-07-02 17:39] LABS: ALBUMIN 3.6 G/DL (3.4-5.0); ANION GAP 11 (8-16); BLOOD UREA NITROGEN 14 MG/DL (7-18); BUN/CREATININE RATIO 17.9 (6.6-38.0); CHLORIDE 103 MMOL/L (99-107); CREATININE 0.78 MG/DL (0.40-0.90); MAGNESIUM 1.9 MG/DL (1.5-2.4); SODIUM 141 MMOL/L (135-145); TOTAL CARBON DIOXIDE 27.1 MMOL/L (24-32); eGFR 86 ML/MIN
[2019-07-02 17:42] LABS: GLUCOSE 156 MG/DL (70-104); POTASSIUM 4.2 MMOL/L (3.5-5.1); WHITE BLOOD COUNT 25.5 X10'3 (4.5-11.0)
[2019-07-02 17:43] LABS: PLATELET COUNT 28 X10'3 (140-440)
[2019-07-02] MEDS: FENTANYL-0.9 % NACL/PF 100 ML IV PRN (18:08)
--- NOTE | 2019-07-02 18:30 | NUR ---
Patient in room ICU 2040. I have received report from DAMEON Blandon and had the opportunity to ask questions and assume patient care.
[2019-07-02] MEDS: octreotide inj. 1,250 MCG in normal saline 250ml IV soln 243.75 ML IV SCH (19:23)
[2019-07-02] MEDS ORDERED: VANCOMYCIN LEVEL IV ONE (19:30)
--- NOTE | 2019-07-02 20:20 | NUR ---
Notified Marcos Tang as well as Marielos Werner, pharmacist of critical vanco trough of 29.6, instructed to hold remainder of dose. Approx 375/1500 mg or 75/300 ml dose infused. Informed they will re-assess dosing in the AM.
[2019-07-02] MEDS: NORepinephrine 8mg/ 250ml NS 250 ML IV SCH (22:12)
[2019-07-02 23:19] LABS: BASOPHILS # (AUTO) 0.1 X10'3 (0-0.2); BASOPHILS % (AUTO) 0.2 % (0-1); EOSINOPHILS % (AUTO) 0 % (0-6); HEMATOCRIT 24.3 % (35.0-45.0); HEMOGLOBIN 8.5 g/dl (12.0-16.0); LYMPHOCYTES # (AUTO) 0.9 X10'3 (1.1-4.8); LYMPHOCYTES % (AUTO) 3.4 % (21-51); MEAN CORPUSCULAR HGB CONC 35.1 g/dL (33.0-36.5); MEAN CORPUSCULAR VOLUME 105.5 FL (78-98); MEAN PLATELET VOLUME 8.1 FL (7.4-10.4); MONOCYTES # (AUTO) 0.9 X10'3 (0-0.9); MONOCYTES % (AUTO) 3.5 % (2-12); NEUTROPHILS # (AUTO) 23.3 X10'3 (1.8-7.7); NEUTROPHILS % (AUTO) 92.9 % (42-75); RED BLOOD COUNT 2.31 X10'6 (4.20-5.60); RED CELL DISTRIBUTION WIDTH 22.5 % (11.5-14.5)
[2019-07-02 23:23] LABS: WHITE BLOOD COUNT 25.1 X10'3 (4.5-11.0)
[2019-07-02 23:24] LABS: PLATELET COUNT 24 X10'3 (140-440)
[2019-07-02 23:37] LABS: ALBUMIN 3.8 G/DL (3.4-5.0); BLOOD UREA NITROGEN 14 MG/DL (7-18); MAGNESIUM 1.8 MG/DL (1.5-2.4); TOTAL CARBON DIOXIDE 27.3 MMOL/L (24-32)
--- NOTE | 2019-07-02 23:39 | NUR ---
Spoke to Marcos GUERRA PLT 24 no new orders at this time
[2019-07-02] MEDS: VASOPRESSIN IV SCH (23:47)
[2019-07-02 23:56] LABS: BUN/CREATININE RATIO 17.1 (6.6-38.0); CREATININE 0.82 MG/DL (0.40-0.90); GLUCOSE 140 MG/DL (70-104); PHOSPHORUS 3.2 MG/DL (2.3-4.5); POTASSIUM 3.8 MMOL/L (3.5-5.1); SODIUM 142 MMOL/L (135-145); eGFR 81 ML/MIN
[2019-07-03] VITALS (24 sets, daily range): BP systolic 81–116; BP diastolic 42–65
[2019-07-03] MEDS: piperacillin/tazo 3.375gm/50ml 50 ML IV SCH ×4 (00:04→23:14)
[2019-07-03] MEDS: midodrine 5mg tablet OGT SCH ×4 (00:04→23:14)
[2019-07-03 00:21] LABS: ANION GAP 13 (8-16); CHLORIDE 102 MMOL/L (99-107)
[2019-07-03] MEDS: Duosol 4K/3 Ca (w/calcium) 5,000 ML HE SCH ×12 (01:26→22:49)
[2019-07-03] MEDS: methylPREDNISolone sod succ/PF 40mg inj. IV SCH ×4 (01:43→19:21)
[2019-07-03] MEDS: pantoprazole 40MG/NS 100ML BAG 100 ML IV SCH ×6 (01:43→21:35)
[2019-07-03] MEDS: lactulose 20gm/30ml cup OGT SCH ×4 (01:43→19:21)
[2019-07-03] MEDS: albumin (human) 25% 100 ML IV solution IV SCH ×2 (01:44→07:17)
[2019-07-03] MEDS: mineral oil/petrolatum ophthal oint EACHEYE SCH ×4 (01:44→19:21)
[2019-07-03 03:25] LABS: ABG BASE EXCESS 1.5 mmol/L (-2.0-3.0); ABG HCO3 26.2 mmol/L (22.0-26.0); ABG PCO2 (T) 39.7 mmHg (35.0-45.0); ABG PH (T) 7.433 (7.350-7.450); ABG PO2 (T) 78.9 mmHg (83-108); FCOHb 1.3 % (0.5-1.5); FMetHb 0.3 % (0.3-1.12); FO2Hb 94.5 % (94-100); MINUTE VOLUME 6 L/min; PEEP 8 cm H2O; RESPIRATORY RATE 12 b/min; RESPIRATORY RATE (OBSERVED) 12 b/min; TIDAL VOLUME 400 mL; TOTAL HEMOGLOBIN 8.5 G/dl (12.0-16.0)
[2019-07-03 05:43] LABS: BASOPHILS % (AUTO) 0.2 % (0-1); EOSINOPHILS % (AUTO) 0 % (0-6); HEMATOCRIT 23.1 % (35.0-45.0); HEMOGLOBIN 8.1 g/dl (12.0-16.0); LYMPHOCYTES # (AUTO) 0.8 X10'3 (1.1-4.8); LYMPHOCYTES % (AUTO) 3.5 % (21-51); MEAN CORPUSCULAR HEMOGLOBIN 37.2 PG (27.0-31.0); MEAN CORPUSCULAR HGB CONC 35.1 g/dL (33.0-36.5); MEAN CORPUSCULAR VOLUME 105.8 FL (78-98); MEAN PLATELET VOLUME 8.4 FL (7.4-10.4); MONOCYTES # (AUTO) 0.9 X10'3 (0-0.9); MONOCYTES % (AUTO) 4.1 % (2-12); NEUTROPHILS # (AUTO) 21.2 X10'3 (1.8-7.7); NEUTROPHILS % (AUTO) 92.2 % (42-75); RED BLOOD COUNT 2.19 X10'6 (4.20-5.60); RED CELL DISTRIBUTION WIDTH 22.6 % (11.5-14.5)
[2019-07-03 05:46] LABS: PLATELET COUNT 27 X10'3 (140-440)
[2019-07-03 05:58] LABS: PARTIAL THROMBOPLASTIN TIME 54 SECONDS (22-32)
[2019-07-03 06:27] LABS: NUCLEATED RED BLOOD CELLS 1 /100WBC (0-0); TOTAL CELLS COUNTED 100
[2019-07-03 06:28] LABS: ANISOCYTOSIS 3+; HYPOCHROMASIA 1+; PLATELET ESTIMATE DECREASED; STOMATOCYTES FEW; TARGET CELLS 1+
--- NOTE | 2019-07-03 06:33 | NUR ---
Problems reprioritized. Patient report given, questions answered & plan of care reviewed with DAMEON Mayers.
[2019-07-03 06:46] LABS: ALANINE AMINOTRANSFERASE 99 U/L (12-78); ALBUMIN 3.7 G/DL (3.4-5.0); ALKALINE PHOSPHATASE 201 IU/L (46-116); BLOOD UREA NITROGEN 12 MG/DL (7-18); BUN/CREATININE RATIO 17.6 (6.6-38.0); CREATININE 0.68 MG/DL (0.40-0.90); MAGNESIUM 1.8 MG/DL (1.5-2.4); TOTAL CARBON DIOXIDE 27.1 MMOL/L (24-32); eGFR > 90 ML/MIN
--- NOTE | 2019-07-03 06:47 | NUR ---
Patient in room ICU 2040. I have received report from Eloina and had the opportunity to ask questions and assume patient care.
[2019-07-03 06:57] LABS: BILIRUBIN,TOTAL 26.3 MG/DL (0.1-1.0); GLUCOSE 159 MG/DL (70-104); PHOSPHORUS 2.4 MG/DL (2.3-4.5)
[2019-07-03] MEDS: ipratropium/albuterol 3ml nebule NEB PRN (06:58)
[2019-07-03 07:11] LABS: ANION GAP 14 (8-16); CHLORIDE 102 MMOL/L (99-107); SODIUM 143 MMOL/L (135-145)
[2019-07-03] MEDS: MULTIVIT-MIN/FERROUS GLUCONATE 9 MG/15 ML LIQUID OGT SCH (07:18)
[2019-07-03] MEDS: NORMAL SALINE IV SCH (07:18)
[2019-07-03] MEDS: FOLIC ACID IV SCH (07:18)
[2019-07-03] MEDS: THIAMINE IV SCH (07:18)
[2019-07-03] MEDS: methylnaltrexone br 12mg/0.6ml inj***SubQ only SQ SCH (07:18)
[2019-07-03 07:19] LABS: ASPARTATE AMINO TRANSFERASE 212 U/L (10-37); POTASSIUM 4.1 MMOL/L (3.5-5.1)
[2019-07-03] MEDS: rifaximin 550mg tablet OGT SCH ×2 (07:19→19:21)
[2019-07-03] MEDS: lactobacillus rhamnosus 10,000 MMU CELLS/CAPSULE OGT SCH ×2 (07:19→19:21)
[2019-07-03 07:31] LABS: ALBUMIN/GLOBULIN RATIO 1.4 (1.1-1.5); TOTAL PROTEIN 6.3 G/DL (6.4-8.2)
[2019-07-03] MEDS: K, MAG and/or Phos replacement - Verify level? MC SCH (08:56)
--- NOTE | 2019-07-03 10:40 | NUR ---
Pablo trigger: Pablo 12; skin intact. Addendum: 07/03/19 at [address] Amended: Links added.
--- NOTE | 2019-07-03 11:37 | NUR ---
1030- Dr Joseph rounds- OK to place rectal tube if needed, aware of platelets, no need to notify if within this range. January d/c roque cath, Change to a modified code status of no compressions, no cardioversion/defibrillation. Medical decision based on patient status. Nursing discussed these changes with S.O. who was at bedside. Stated understanding.
[2019-07-03 11:41] LABS: BASOPHILS % (AUTO) 0.1 % (0-1); EOSINOPHILS % (AUTO) 0 % (0-6); HEMATOCRIT 23.4 % (35.0-45.0); HEMOGLOBIN 8.2 g/dl (12.0-16.0); LYMPHOCYTES # (AUTO) 0.7 X10'3 (1.1-4.8); LYMPHOCYTES % (AUTO) 2.7 % (21-51); MEAN CORPUSCULAR HEMOGLOBIN 36.8 PG (27.0-31.0); MEAN CORPUSCULAR HGB CONC 34.9 g/dL (33.0-36.5); MEAN CORPUSCULAR VOLUME 105.4 FL (78-98); MEAN PLATELET VOLUME 8.8 FL (7.4-10.4); MONOCYTES # (AUTO) 1.2 X10'3 (0-0.9); MONOCYTES % (AUTO) 4.7 % (2-12); NEUTROPHILS # (AUTO) 22.8 X10'3 (1.8-7.7); NEUTROPHILS % (AUTO) 92.5 % (42-75); RED BLOOD COUNT 2.22 X10'6 (4.20-5.60); RED CELL DISTRIBUTION WIDTH 22.4 % (11.5-14.5); WHITE BLOOD COUNT 24.7 X10'3 (4.5-11.0)
[2019-07-03 11:47] LABS: PLATELET COUNT 27 X10'3 (140-440)
[2019-07-03] MEDS: NORepinephrine 8mg/ 250ml NS 250 ML IV SCH (11:57)
[2019-07-03 12:01] LABS: ALBUMIN 3.9 G/DL (3.4-5.0); ANION GAP 11 (8-16); BLOOD UREA NITROGEN 16 MG/DL (7-18); BUN/CREATININE RATIO 22.5 (6.6-38.0); CHLORIDE 102 MMOL/L (99-107); CREATININE 0.71 MG/DL (0.40-0.90); GLUCOSE 167 MG/DL (70-104); MAGNESIUM 1.7 MG/DL (1.5-2.4); PHOSPHORUS 2.5 MG/DL (2.3-4.5); POTASSIUM 4.2 MMOL/L (3.5-5.1); SODIUM 139 MMOL/L (135-145); TOTAL CARBON DIOXIDE 26.5 MMOL/L (24-32); eGFR > 90 ML/MIN
[2019-07-03] MEDS: magnesium 4gm in 100ml NS 100 ML IV PRN (12:26)
[2019-07-03 17:37] LABS: BASOPHILS # (AUTO) 0.4 X10'3 (0-0.2); BASOPHILS % (AUTO) 1.4 % (0-1); EOSINOPHILS % (AUTO) 0 % (0-6); HEMATOCRIT 23.3 % (35.0-45.0); HEMOGLOBIN 7.9 g/dl (12.0-16.0); LYMPHOCYTES # (AUTO) 0.6 X10'3 (1.1-4.8); LYMPHOCYTES % (AUTO) 2.3 % (21-51); MEAN CORPUSCULAR HEMOGLOBIN 36.4 PG (27.0-31.0); MEAN CORPUSCULAR VOLUME 106.9 FL (78-98); MEAN PLATELET VOLUME 8.1 FL (7.4-10.4); MONOCYTES # (AUTO) 1.1 X10'3 (0-0.9); MONOCYTES % (AUTO) 4.4 % (2-12); NEUTROPHILS # (AUTO) 23.3 X10'3 (1.8-7.7); NEUTROPHILS % (AUTO) 91.9 % (42-75); RED BLOOD COUNT 2.18 X10'6 (4.20-5.60); RED CELL DISTRIBUTION WIDTH 22.5 % (11.5-14.5)
[2019-07-03 17:39] LABS: PLATELET COUNT 30 X10'3 (140-440); WHITE BLOOD COUNT 25.4 X10'3 (4.5-11.0)
[2019-07-03 17:53] LABS: ALBUMIN 3.8 G/DL (3.4-5.0); ANION GAP 10 (8-16); BLOOD UREA NITROGEN 15 MG/DL (7-18); BUN/CREATININE RATIO 19.2 (6.6-38.0); CHLORIDE 104 MMOL/L (99-107); CREATININE 0.78 MG/DL (0.40-0.90); MAGNESIUM 3.1 MG/DL (1.5-2.4); SODIUM 141 MMOL/L (135-145); TOTAL CARBON DIOXIDE 26.8 MMOL/L (24-32); eGFR 86 ML/MIN
[2019-07-03 17:54] LABS: GLUCOSE 165 MG/DL (70-104); POTASSIUM 4.1 MMOL/L (3.5-5.1)
--- NOTE | 2019-07-03 18:23 | NUR ---
Problems reprioritized. Patient report given, questions answered & plan of care reviewed with Eloina.
--- NOTE | 2019-07-03 18:30 | NUR ---
Patient in room ICU 2040. I have received report from DAMEON Mayers and had the opportunity to ask questions and assume patient care.
[2019-07-03] MEDS: sodium phosphate inj. 30 MMOL in normal saline 250ml IV soln 250 ML IV PRN (19:22)
[2019-07-03 23:37] LABS: BASOPHILS # (AUTO) 0.1 X10'3 (0-0.2); BASOPHILS % (AUTO) 0.6 % (0-1); EOSINOPHILS % (AUTO) 0 % (0-6); HEMATOCRIT 23.4 % (35.0-45.0); HEMOGLOBIN 8.1 g/dl (12.0-16.0); LYMPHOCYTES # (AUTO) 0.5 X10'3 (1.1-4.8); LYMPHOCYTES % (AUTO) 2.3 % (21-51); MEAN CORPUSCULAR HEMOGLOBIN 36.9 PG (27.0-31.0); MEAN CORPUSCULAR HGB CONC 34.7 g/dL (33.0-36.5); MEAN CORPUSCULAR VOLUME 106.2 FL (78-98); MEAN PLATELET VOLUME 8.9 FL (7.4-10.4); MONOCYTES % (AUTO) 4.4 % (2-12); NEUTROPHILS # (AUTO) 21.6 X10'3 (1.8-7.7); NEUTROPHILS % (AUTO) 92.7 % (42-75); RED CELL DISTRIBUTION WIDTH 22.4 % (11.5-14.5); WHITE BLOOD COUNT 23.3 X10'3 (4.5-11.0)
[2019-07-03 23:38] LABS: ALBUMIN 3.5 G/DL (3.4-5.0); BLOOD UREA NITROGEN 15 MG/DL (7-18); MAGNESIUM 2.3 MG/DL (1.5-2.4); TOTAL CARBON DIOXIDE 27.8 MMOL/L (24-32)
[2019-07-03 23:44] LABS: PLATELET COUNT 29 X10'3 (140-440)
[2019-07-03 23:49] LABS: BUN/CREATININE RATIO 19.7 (6.6-38.0); CREATININE 0.76 MG/DL (0.40-0.90); GLUCOSE 158 MG/DL (70-104); PHOSPHORUS 2.9 MG/DL (2.3-4.5); POTASSIUM 3.6 MMOL/L (3.5-5.1); SODIUM 137 MMOL/L (135-145); eGFR 89 ML/MIN
[2019-07-03 23:57] LABS: ANION GAP 6 (8-16); CHLORIDE 103 MMOL/L (99-107)
[2019-07-04] VITALS (24 sets, daily range): BP systolic 90–122; BP diastolic 44–65
[2019-07-04] MEDS: Duosol 4K/3 Ca (w/calcium) 5,000 ML HE SCH ×14 (00:22→23:17)
[2019-07-04] MEDS: mineral oil/petrolatum ophthal oint EACHEYE SCH ×4 (01:24→19:21)
[2019-07-04] MEDS: lactulose 20gm/30ml cup OGT SCH ×4 (01:24→19:21)
[2019-07-04] MEDS: methylPREDNISolone sod succ/PF 40mg inj. IV SCH ×4 (01:24→19:21)
[2019-07-04] MEDS: VANCOMYCIN LEVEL IV SCH (02:32)
[2019-07-04] MEDS: pantoprazole 40MG/NS 100ML BAG 100 ML IV SCH ×5 (02:34→23:18)
[2019-07-04 04:56] LABS: ABG BASE EXCESS 2.2 mmol/L (-2.0-3.0); ABG HCO3 26.7 mmol/L (22.0-26.0); ABG OXYGEN SATURATION 95.5 % (95-98); ABG PCO2 (T) 40.6 mmHg (35.0-45.0); ABG PH (T) 7.434 (7.350-7.450); ABG PO2 (T) 77.5 mmHg (83-108); FCOHb 1.2 % (0.5-1.5); FMetHb 0.1 % (0.3-1.12); FO2Hb 94.3 % (94-100); MINUTE VOLUME 6 L/min; PATIENT TEMPERATURE 36.8; PEEP 8 cm H2O; RESPIRATORY RATE 12 b/min; RESPIRATORY RATE (OBSERVED) 12 b/min; TIDAL VOLUME 400 mL; TOTAL HEMOGLOBIN 8.8 G/dl (12.0-16.0)
[2019-07-04 05:36] LABS: EOSINOPHILS % (AUTO) 0 % (0-6); HEMOGLOBIN 8.3 g/dl (12.0-16.0); LYMPHOCYTES # (AUTO) 0.5 X10'3 (1.1-4.8); MEAN CORPUSCULAR VOLUME 105.5 FL (78-98)
[2019-07-04 05:38] LABS: BASOPHILS # (AUTO) 0.3 X10'3 (0-0.2); BASOPHILS % (AUTO) 1.5 % (0-1); HEMATOCRIT 23.6 % (35.0-45.0); LYMPHOCYTES % (AUTO) 2.1 % (21-51); MEAN CORPUSCULAR HEMOGLOBIN 36.9 PG (27.0-31.0); MONOCYTES % (AUTO) 4.1 % (2-12); NEUTROPHILS # (AUTO) 21.6 X10'3 (1.8-7.7); NEUTROPHILS % (AUTO) 92.3 % (42-75); RED BLOOD COUNT 2.24 X10'6 (4.20-5.60); RED CELL DISTRIBUTION WIDTH 22.4 % (11.5-14.5); WHITE BLOOD COUNT 23.4 X10'3 (4.5-11.0)
[2019-07-04 05:42] LABS: PLATELET COUNT 30 X10'3 (140-440)
[2019-07-04 05:52] LABS: PARTIAL THROMBOPLASTIN TIME 47 SECONDS (22-32)
[2019-07-04 06:01] LABS: LACTIC SEPSIS 0.9 MMOL/L (0.4-2.0)
[2019-07-04 06:07] LABS: ALANINE AMINOTRANSFERASE 126 U/L (12-78); ALBUMIN 3.4 G/DL (3.4-5.0); ALKALINE PHOSPHATASE 197 IU/L (46-116); ANION GAP 9 (8-16); BLOOD UREA NITROGEN 16 MG/DL (7-18); CALCIUM 10.2 MG/DL (8.5-10.1); CHLORIDE 103 MMOL/L (99-107); MAGNESIUM 2.2 MG/DL (1.5-2.4); SODIUM 139 MMOL/L (135-145)
--- NOTE | 2019-07-04 06:11 | NUR ---
Problems reprioritized. Patient report given, questions answered & plan of care reviewed with DAMEON Mayers.
[2019-07-04 06:39] LABS: ANISOCYTOSIS 3+; HYPOCHROMASIA 1+; PLATELET ESTIMATE DECREASED
[2019-07-04 06:40] LABS: STOMATOCYTES 1+; TARGET CELLS 1+
[2019-07-04 06:49] LABS: VANCOMYCIN,RANDOM 7.2 UG/ML
[2019-07-04 06:51] LABS: ALBUMIN/GLOBULIN RATIO 1.1 (1.1-1.5); ASPARTATE AMINO TRANSFERASE 222 U/L (10-37); BILIRUBIN,TOTAL 26.9 MG/DL (0.1-1.0); BUN/CREATININE RATIO 20.8 (6.6-38.0); CREATININE 0.77 MG/DL (0.40-0.90); GLUCOSE 177 MG/DL (70-104); PHOSPHORUS 2.5 MG/DL (2.3-4.5); POTASSIUM 3.8 MMOL/L (3.5-5.1); TOTAL PROTEIN 6.4 G/DL (6.4-8.2); eGFR 87 ML/MIN
[2019-07-04] MEDS: rifaximin 550mg tablet OGT SCH ×2 (07:26→19:21)
[2019-07-04] MEDS: lactobacillus rhamnosus 10,000 MMU CELLS/CAPSULE OGT SCH ×2 (07:26→19:21)
[2019-07-04] MEDS: THIAMINE IV SCH (07:26)
[2019-07-04] MEDS: MULTIVIT-MIN/FERROUS GLUCONATE 9 MG/15 ML LIQUID OGT SCH (07:26)
[2019-07-04] MEDS: piperacillin/tazo 3.375gm/50ml 50 ML IV SCH ×3 (07:26→23:21)
[2019-07-04] MEDS: NORMAL SALINE IV SCH ×2 (07:26→09:20)
[2019-07-04] MEDS: FOLIC ACID IV SCH (07:26)
[2019-07-04] MEDS: midodrine 5mg tablet OGT SCH ×3 (07:27→23:21)
[2019-07-04] MEDS: K, MAG and/or Phos replacement - Verify level? MC SCH (07:27)
[2019-07-04] MEDS: VASOPRESSIN IV SCH (09:20)
--- NOTE | 2019-07-04 10:23 | NUR ---
1000- Dr Avitia rounds- Dr Avitia spoke with S.O., plan is family meeting to be arranged today or tomorrow by case management with brother, s.o., and potentially mother to discuss course of action by weeks end. Resume 25% Albumin q 6hour. Place corepak due to high residuals. Vitamin K 10 daily sq. No platelet transfusion unless level <20 or actively bleeding.
[2019-07-04 11:55] LABS: BASOPHILS # (AUTO) 0.1 X10'3 (0-0.2); BASOPHILS % (AUTO) 0.5 % (0-1); EOSINOPHILS % (AUTO) 0 % (0-6); HEMOGLOBIN 8.5 g/dl (12.0-16.0); LYMPHOCYTES # (AUTO) 0.6 X10'3 (1.1-4.8); LYMPHOCYTES % (AUTO) 2.1 % (21-51); MEAN CORPUSCULAR HEMOGLOBIN 36.7 PG (27.0-31.0); MEAN CORPUSCULAR HGB CONC 34.2 g/dL (33.0-36.5); MEAN CORPUSCULAR VOLUME 107.4 FL (78-98); MEAN PLATELET VOLUME 8.6 FL (7.4-10.4); MONOCYTES # (AUTO) 1.1 X10'3 (0-0.9); MONOCYTES % (AUTO) 4.2 % (2-12); NEUTROPHILS % (AUTO) 93.2 % (42-75); RED BLOOD COUNT 2.32 X10'6 (4.20-5.60); RED CELL DISTRIBUTION WIDTH 22.4 % (11.5-14.5)
[2019-07-04] MEDS ORDERED: phytonadione inj. 10 MG in normal saline 100ml IV soln 99 ML IV SCH (12:00)
[2019-07-04 12:02] LABS: WHITE BLOOD COUNT 26.8 X10'3 (4.5-11.0)
[2019-07-04 12:08] LABS: ALBUMIN 3.4 G/DL (3.4-5.0); ANION GAP 10 (8-16); BLOOD UREA NITROGEN 16 MG/DL (7-18); CALCIUM 10.2 MG/DL (8.5-10.1); CHLORIDE 102 MMOL/L (99-107); SODIUM 139 MMOL/L (135-145); TOTAL CARBON DIOXIDE 26.7 MMOL/L (24-32)
[2019-07-04 12:10] LABS: BUN/CREATININE RATIO 20.8 (6.6-38.0); CREATININE 0.77 MG/DL (0.40-0.90); GLUCOSE 186 MG/DL (70-104); POTASSIUM 3.9 MMOL/L (3.5-5.1); eGFR 87 ML/MIN
[2019-07-04] MEDS: sodium phosphate inj. 30 MMOL in normal saline 250ml IV soln 250 ML IV PRN (12:41)
[2019-07-04] MEDS: albumin (human) 25% 100ml IV 100 ML IV SCH ×2 (13:24→19:21)
--- NOTE | 2019-07-04 14:21 | NUR ---
1330- tip of corepak in body of stomach, advanced to 90cm, will re check xray in a few hours.
[2019-07-04] MEDS: octreotide inj. 1,250 MCG in normal saline 250ml IV soln 243.75 ML IV SCH (14:23)
[2019-07-04 17:33] LABS: BASOPHILS # (AUTO) 0.4 X10'3 (0-0.2); BASOPHILS % (AUTO) 1.5 % (0-1); EOSINOPHILS % (AUTO) 0 % (0-6); HEMATOCRIT 23.5 % (35.0-45.0); LYMPHOCYTES # (AUTO) 0.4 X10'3 (1.1-4.8); LYMPHOCYTES % (AUTO) 1.5 % (21-51); MEAN CORPUSCULAR HEMOGLOBIN 36.3 PG (27.0-31.0); MEAN CORPUSCULAR HGB CONC 34.2 g/dL (33.0-36.5); MEAN CORPUSCULAR VOLUME 106.2 FL (78-98); MEAN PLATELET VOLUME 9.8 FL (7.4-10.4); MONOCYTES % (AUTO) 4.1 % (2-12); NEUTROPHILS # (AUTO) 23.7 X10'3 (1.8-7.7); NEUTROPHILS % (AUTO) 92.9 % (42-75); RED BLOOD COUNT 2.22 X10'6 (4.20-5.60); RED CELL DISTRIBUTION WIDTH 22.3 % (11.5-14.5)
[2019-07-04 17:41] LABS: WHITE BLOOD COUNT 25.5 X10'3 (4.5-11.0)
[2019-07-04 17:42] LABS: PLATELET COUNT 32 X10'3 (140-440)
[2019-07-04 17:47] LABS: ALBUMIN 3.6 G/DL (3.4-5.0); ANION GAP 10 (8-16); BLOOD UREA NITROGEN 16 MG/DL (7-18); BUN/CREATININE RATIO 22.9 (6.6-38.0); CALCIUM 10.1 MG/DL (8.5-10.1); CHLORIDE 103 MMOL/L (99-107); GLUCOSE 169 MG/DL (70-104); MAGNESIUM 1.9 MG/DL (1.5-2.4); PHOSPHORUS 3.7 MG/DL (2.3-4.5); POTASSIUM 3.9 MMOL/L (3.5-5.1); SODIUM 139 MMOL/L (135-145); eGFR > 90 ML/MIN
[2019-07-04 18:09] LABS: TOTAL CELLS COUNTED 100
[2019-07-04 18:10] LABS: ANISOCYTOSIS 3+; PLATELET ESTIMATE DECREASED
[2019-07-04 18:11] LABS: TARGET CELLS 2+
[2019-07-04 18:13] LABS: SPHEROCYTES 1+; TOXIC GRANULATION 1+
[2019-07-04 18:15] LABS: POLYCHROMASIA FEW
--- NOTE | 2019-07-04 18:30 | NUR ---
[address] at 95cm. Reported off to Eloina.
--- NOTE | 2019-07-04 18:30 | NUR ---
Patient in room ICU 2040. I have received report from DAMEON Farmer and had the opportunity to ask questions and assume patient care.
[2019-07-04] MEDS ORDERED: MESSAGE TO PHARMACY PO ONE (20:00)
[2019-07-04] MEDS ORDERED: glucagon, human recombinant 1mg kit SUBCUT PRN (20:00)
[2019-07-04] MEDS ORDERED: dextrose ORAL solution 15 GM/59 ML bottle PO PRN ×2 (20:00)
[2019-07-04] MEDS ORDERED: dextrose 50%-water 50ml dispensing syringe IV PRN ×2 (20:00)
[2019-07-04 20:31] LABS: HEMOGLOBIN A1C 4.5 % (4.5-6.2)
[2019-07-04] MEDS ORDERED: insulin glargine (Lantus) pen - multi-dose SQ SCH (21:00)
[2019-07-04] MEDS: insulin regular, human vial - multi-dose SQ SCH (21:48)
[2019-07-04] MEDS: midazolam 100mg in NS 100ml 100 ML IV SCH (21:51)
[2019-07-04] MEDS: NORepinephrine 8mg/ 250ml NS 250 ML IV SCH (21:52)
[2019-07-04] MEDS ORDERED: phytonadione inj. 10 MG in normal saline 100ml IV soln 100 ML IV SCH (22:58)
[2019-07-04] MEDS ORDERED: THIAMINE IV SCH (23:00)
[2019-07-04] MEDS ORDERED: NORMAL SALINE IV SCH (23:00)
[2019-07-04] MEDS ORDERED: FOLIC ACID IV SCH (23:00)
[2019-07-05] VITALS (17 sets, daily range): BP systolic 102–130; BP diastolic 47–65
[2019-07-05 00:42] LABS: BASOPHILS # (AUTO) 0.3 X10'3 (0-0.2); BASOPHILS % (AUTO) 0.9 % (0-1); EOSINOPHILS % (AUTO) 0 % (0-6); HEMOGLOBIN 8.4 g/dl (12.0-16.0); LYMPHOCYTES # (AUTO) 0.5 X10'3 (1.1-4.8); LYMPHOCYTES % (AUTO) 1.9 % (21-51); MEAN CORPUSCULAR HEMOGLOBIN 37.1 PG (27.0-31.0); MEAN CORPUSCULAR HGB CONC 35.1 g/dL (33.0-36.5); MEAN CORPUSCULAR VOLUME 105.8 FL (78-98); MEAN PLATELET VOLUME 9.3 FL (7.4-10.4); MONOCYTES # (AUTO) 1.1 X10'3 (0-0.9); MONOCYTES % (AUTO) 3.8 % (2-12); NEUTROPHILS % (AUTO) 93.4 % (42-75); RED BLOOD COUNT 2.27 X10'6 (4.20-5.60); RED CELL DISTRIBUTION WIDTH 22.6 % (11.5-14.5)
[2019-07-05 00:44] LABS: PLATELET COUNT 35 X10'3 (140-440); WHITE BLOOD COUNT 27.8 X10'3 (4.5-11.0)
[2019-07-05 00:54] LABS: ALBUMIN 3.8 G/DL (3.4-5.0); ANION GAP 11 (8-16); BLOOD UREA NITROGEN 17 MG/DL (7-18); BUN/CREATININE RATIO 24.6 (6.6-38.0); CHLORIDE 104 MMOL/L (99-107); CREATININE 0.69 MG/DL (0.40-0.90); MAGNESIUM 1.8 MG/DL (1.5-2.4); SODIUM 143 MMOL/L (135-145); TOTAL CARBON DIOXIDE 28.2 MMOL/L (24-32); eGFR > 90 ML/MIN
[2019-07-05 00:57] LABS: GLUCOSE 164 MG/DL (70-104); PHOSPHORUS 2.8 MG/DL (2.3-4.5); POTASSIUM 3.8 MMOL/L (3.5-5.1)
[2019-07-05 01:01] LABS: ANISOCYTOSIS 3+; PLATELET ESTIMATE DECREASED; TOTAL CELLS COUNTED 100
[2019-07-05 01:02] LABS: TARGET CELLS 1+; TOXIC GRANULATION 1+
[2019-07-05] MEDS: Duosol 4K/3 Ca (w/calcium) 5,000 ML HE SCH ×10 (01:45→13:38)
[2019-07-05] MEDS: mineral oil/petrolatum ophthal oint EACHEYE SCH ×3 (01:45→14:00)
[2019-07-05] MEDS: lactulose 20gm/30ml cup OGT SCH ×3 (01:55→14:00)
[2019-07-05] MEDS: methylPREDNISolone sod succ/PF 40mg inj. IV SCH ×3 (01:55→14:00)
[2019-07-05] MEDS: albumin (human) 25% 100ml IV 100 ML IV SCH ×2 (01:56→07:29)
[2019-07-05] MEDS: VANCOMYCIN LEVEL IV SCH (02:48)
[2019-07-05] MEDS: insulin regular, human vial - multi-dose SQ SCH ×2 (02:54→08:52)
[2019-07-05 03:26] LABS: ABG BASE EXCESS 2.6 mmol/L (-2.0-3.0); ABG HCO3 27.3 mmol/L (22.0-26.0); ABG OXYGEN SATURATION 95.6 % (95-98); ABG PCO2 (T) 41.8 mmHg (35.0-45.0); ABG PH (T) 7.431 (7.350-7.450); ABG PO2 (T) 77.9 mmHg (83-108); FCOHb 1.3 % (0.5-1.5); FO2Hb 94.4 % (94-100); MINUTE VOLUME 6 L/min; PATIENT TEMPERATURE 36.4; PEEP 8 cm H2O; RESPIRATORY RATE 12 b/min; RESPIRATORY RATE (OBSERVED) 14 b/min; TIDAL VOLUME 400 mL; TOTAL HEMOGLOBIN 8.9 G/dl (12.0-16.0)
[2019-07-05] MEDS: pantoprazole 40MG/NS 100ML BAG 100 ML IV SCH ×2 (03:52→09:33)
--- NOTE | 2019-07-05 04:00 | NUR ---
Advanced tube feeds to 40
[2019-07-05 05:39] LABS: BASOPHILS # (AUTO) 0.1 X10'3 (0-0.2); BASOPHILS % (AUTO) 0.6 % (0-1); EOSINOPHILS % (AUTO) 0 % (0-6); HEMATOCRIT 22.9 % (35.0-45.0); HEMOGLOBIN 8.1 g/dl (12.0-16.0); LYMPHOCYTES # (AUTO) 0.5 X10'3 (1.1-4.8); LYMPHOCYTES % (AUTO) 1.8 % (21-51); MEAN CORPUSCULAR HEMOGLOBIN 37.9 PG (27.0-31.0); MEAN CORPUSCULAR HGB CONC 35.5 g/dL (33.0-36.5); MEAN CORPUSCULAR VOLUME 106.9 FL (78-98); MEAN PLATELET VOLUME 9.6 FL (7.4-10.4); MONOCYTES % (AUTO) 3.7 % (2-12); NEUTROPHILS # (AUTO) 24.5 X10'3 (1.8-7.7); NEUTROPHILS % (AUTO) 93.9 % (42-75); RED BLOOD COUNT 2.15 X10'6 (4.20-5.60); RED CELL DISTRIBUTION WIDTH 22.1 % (11.5-14.5)
[2019-07-05 05:40] LABS: PARTIAL THROMBOPLASTIN TIME 48 SECONDS (22-32)
[2019-07-05 05:55] LABS: PLATELET COUNT 33 X10'3 (140-440); WHITE BLOOD COUNT 26.1 X10'3 (4.5-11.0)
[2019-07-05 06:17] LABS: LACTIC SEPSIS 1.1 MMOL/L (0.4-2.0)
--- NOTE | 2019-07-05 06:20 | NUR ---
Problems reprioritized. Patient report given, questions answered & plan of care reviewed with DAMEON Mayers.
[2019-07-05 06:21] LABS: ALANINE AMINOTRANSFERASE 141 U/L (12-78); ALKALINE PHOSPHATASE 192 IU/L (46-116); ANION GAP 13 (8-16); BLOOD UREA NITROGEN 17 MG/DL (7-18); BUN/CREATININE RATIO 24.3 (6.6-38.0); CALCIUM 10.2 MG/DL (8.5-10.1); CHLORIDE 104 MMOL/L (99-107); MAGNESIUM 1.8 MG/DL (1.5-2.4); SODIUM 144 MMOL/L (135-145); TOTAL CARBON DIOXIDE 27.2 MMOL/L (24-32); VANCOMYCIN,RANDOM 11.7 UG/ML; eGFR > 90 ML/MIN
--- NOTE | 2019-07-05 06:25 | NUR ---
Patient in room ICU 2040. I have received report from Eloina and had the opportunity to ask questions and assume patient care.
[2019-07-05 06:28] LABS: ALBUMIN/GLOBULIN RATIO 1.3 (1.1-1.5); ASPARTATE AMINO TRANSFERASE 203 U/L (10-37); BILIRUBIN,TOTAL 27.4 MG/DL (0.1-1.0); GLUCOSE 152 MG/DL (70-104); PHOSPHORUS 2.3 MG/DL (2.3-4.5); POTASSIUM 3.8 MMOL/L (3.5-5.1)
[2019-07-05] MEDS: midodrine 5mg tablet OGT SCH (07:24)
[2019-07-05] MEDS: MULTIVIT-MIN/FERROUS GLUCONATE 9 MG/15 ML LIQUID OGT SCH (07:24)
[2019-07-05] MEDS: rifaximin 550mg tablet OGT SCH (07:25)
[2019-07-05] MEDS: lactobacillus rhamnosus 10,000 MMU CELLS/CAPSULE OGT SCH (07:26)
[2019-07-05] MEDS: piperacillin/tazo 3.375gm/50ml 50 ML IV SCH (07:29)
[2019-07-05] MEDS: K, MAG and/or Phos replacement - Verify level? MC SCH (07:30)
--- NOTE | 2019-07-05 09:33 | NUR ---
0700- Patient assessed. No meaningful movement, upper extremities exhibit decorticate posturing repeatedly, no response to deep pain. 0900- Dr Avitia here. updated on neurological decline, plan is for family meeting at 11:00 to determine course of care. CVVH filter change on hold until poc determined.
--- NOTE | 2019-07-05 10:09 | NUR ---
1000- rounds- stop cvvh for a head ct, d/c relistor (fentanyl dc'd). Plan of care to be determined after family meeting.
[2019-07-05 10:50] LABS: PLATELET COUNT 30 X10'3 (140-440)
--- NOTE | 2019-07-05 11:19 | NUR ---
1120-Family meeting concluded. Family has decided on withdrawing support. Pt to be extubated and comfort care initiated when family indicates they are ready. CT cancelled.
--- NOTE | 2019-07-05 13:06 | NUR ---
F/U: Pt has a corpak placed and confirmed; will restart TF again.TF restarts at 40ml/hr per chart note, GRV WNL. LBM 07/04. Will continue to monitor TF tolerance. Pablo trigger: Pablo 12; skin intact. Reassessment: TF continues at 30 mL/hr and has not been advanced to goal d/t residuals in the higher range of 350-450 mL. D/w MD recommendation for promotility agent or opioid antagonist. Per MD promotility such as Reglan not appropriate for pt at this time however pt to start on Relistor. ARMANDO stable on CRRT per MD notes. LBM 06/30 documented with 5 stools, pt receiving Lactulose. Will continue to follow closely. Rec: 1. CorpakTF per MD using Vital High Protein at goal rate 90ml/hr; to provide 2160ml fluid,2160kcal, 189g protein and 1814ml free water 2. Additional water flush per MD on CVVH 3. Prealbumin q /; daily wts 4. Routine bowel care Addendum: 07/05/19 at [address] Amended: Links added. Addendum: 07/05/19 at [address] RYAN Doll
--- NOTE | 2019-07-05 14:53 | NUR ---
1400- patient's family continuing to need support in decision to remove life support. Daughter was brought to bedside. Multiple family continue to visit. Continue to monitor patient. Temperature up to 38.6 since stopping cvvh. Family has signed consent for release. Donor network has been contacted and reference number [id number] assigned.
[2019-07-05] MEDS: LORazepam 2 mg/ml vial IV PRN ×2 (16:09→20:40)
[2019-07-05] MEDS: morphine 10mg/ml inj. IV PRN ×3 (16:09→23:02)
--- NOTE | 2019-07-05 16:30 | NUR ---
1530- Patient ruled out as donor by donor network per Vasquez. 1620- Family ready to remove life support. Comfort care orders initiated. Patient extubated. Removed corepak and og. Family recalled to room. at bedside now. monitor on privacy mode. continue to monitor patient vital sign from nursing station. family educated to call nursing for any questions or concerns
--- NOTE | 2019-07-05 18:30 | NUR ---
Patient in room ICU 2040. I have received report from DAMEON Mayers and had the opportunity to ask questions and assume patient care. Pt is now comfort care, removed all of the rest of equipment while family had stepped out. Quick assessment and pt positioning in preparation for family visit.
[2019-07-06] MEDS: LORazepam 2 mg/ml vial IV PRN ×4 (01:15→07:21)
[2019-07-06] MEDS: morphine 10mg/ml inj. IV PRN ×3 (01:15→05:14)
[2019-07-06 03:00] VITALS: BP 94/42
--- NOTE | 2019-07-06 06:41 | NUR ---
Problems reprioritized. Patient report given, questions answered & plan of care reviewed with DAMEON Crooks.
--- NOTE | 2019-07-06 14:06 | NUR ---
Pt. 07/06 at 0736a. Asystole noted and pt. declared per Dr. Avitia.
[2019-07-08 11:38] LABS: OCCULT BLOOD STOOL POSITIVE (Neg)
== END 2019-07-06 07:36 | disposition expired | DRG 720 ==
LOC: ER 22:49 → ED HOLD 06-27 01:03 → ICU 2S 06-27 03:03
PROVIDERS: ADMIT Internal Medicine Critical Care Medicine; ATTEND Internal Medicine Critical Care Medicine
PROC: 5A1955Z Respiratory Ventilation, Greater than 96 Consecutive Hours (ICD-10-PCS; principal; 2019-06-26)
PROC: 0D9670Z Drainage of Stomach with Drainage Device, Via Natural or Artificial Opening (ICD-10-PCS; 2019-06-26)
PROC: 02HV33Z Insertion of Infusion Device into Superior Vena Cava, Percutaneous Approach (ICD-10-PCS; 2019-06-26)
PROC: B548ZZA Ultrasonography of Superior Vena Cava, Guidance (ICD-10-PCS; 2019-06-26)
PROC: 0BH17EZ Insertion of Endotracheal Airway into Trachea, Via Natural or Artificial Opening (ICD-10-PCS; 2019-06-26)
PROC: 30233N1 Transfusion of Nonautologous Red Blood Cells into Peripheral Vein, Percutaneous Approach (ICD-10-PCS; 2019-06-26)
PROC: 30233K1 Transfusion of Nonautologous Frozen Plasma into Peripheral Vein, Percutaneous Approach (ICD-10-PCS; 2019-06-27)
PROC: 30233R1 Transfusion of Nonautologous Platelets into Peripheral Vein, Percutaneous Approach (ICD-10-PCS; 2019-06-27)
PROC: 30233M1 Transfusion of Nonautologous Plasma Cryoprecipitate into Peripheral Vein, Percutaneous Approach (ICD-10-PCS; 2019-06-27)
PROC: 02HV33Z Insertion of Infusion Device into Superior Vena Cava, Percutaneous Approach (ICD-10-PCS; 2019-06-27)
PROC: B548ZZA Ultrasonography of Superior Vena Cava, Guidance (ICD-10-PCS; 2019-06-27)
PROC: 04HY32Z Insertion of Monitoring Device into Lower Artery, Percutaneous Approach (ICD-10-PCS; 2019-06-27)
PROC: 4A133B1 Monitoring of Arterial Pressure, Peripheral, Percutaneous Approach (ICD-10-PCS; 2019-06-27)
PROC: 4A133J1 Monitoring of Arterial Pulse, Peripheral, Percutaneous Approach (ICD-10-PCS; 2019-06-27)
PROC: 5A1D90Z Performance of Urinary Filtration, Continuous, Greater than 18 hours Per Day (ICD-10-PCS; 2019-07-03)
DX: A41.9 Sepsis, unspecified organism (principal); K72.00 Acute and subacute hepatic failure without coma; K76.7 Hepatorenal syndrome; J96.00 Acute respiratory failure, unspecified whether with hypoxia or hypercapnia; R57.1 Hypovolemic shock; K76.6 Portal hypertension; R65.21 Severe sepsis with septic shock; J18.9 Pneumonia, unspecified organism; E87.2 Acidosis; R04.0 Epistaxis; K70.10 Alcoholic hepatitis without ascites; N17.9 Acute kidney failure, unspecified; D64.9 Anemia, unspecified; E16.2 Hypoglycemia, unspecified; F10.20 Alcohol dependence, uncomplicated; J98.11 Atelectasis; K52.9 Noninfective gastroenteritis and colitis, unspecified
CPT/HCPCS: 36415; 36600; 70450; 70491; 71045; 71260; 74018; 74177; 80053; 80069; 80202; 80305; 80320; 80329; 81001; 81025; 82140; 82248; 82272; 82330; 82550; 82553; 82803; 82810; 82948; 83036; 83605; 83690; 83735; 83880; 83930; 84100; 84134; 84439; 84443; 84484; 85018; 85025; 85610; 85730; 86885; 86900; 86901; 86920; 87040; 87070; 87081; 90935; 93005; 94002; 94003; 94640; 94760; C9113; E1594; G0378; J0171; J1815; J2060; J2212; J2250; J2270; J2354; J2543; J2920; J3010; J3370; J3411; J3430; J3475; J3480; J3490; J7050; J7060; P9012; P9016; P9035; P9047; P9059; Q9967